=== PATIENT | male | born 1960 | race Caucasian/White ===

== ENCOUNTER 2019-09-13 15:51 | Inpatient (IN) | payer MEDICARE, SELFPAY ==
[2019-09-13 17:26] VITALS: BP 151/75; PULSE 122; RESP 18; TEMP 39.4; O2SAT 95; BMI 24.4
--- NOTE | 2019-09-13 17:31 | XR_ITS ---
WS: [id number] Portable AP upright chest, 09/13/2019 Clinical Data: fever, cough Comparison: None. Findings: No nodules, masses or effusions are seen. The heart is normal. The pulmonary vascularity is not increased. No pneumonia or pneumothorax is seen. XR/XR chest 1V portable [id number] Impression: Negative chest.
[2019-09-13 18:05] LABS: Basophils # 0.1 10^3/uL (0.0-0.1); Basophils % 0.2 %; Eosinophils # 0.1 10^3/uL (0.0-0.8); Eosinophils % 0.5 %; Hematocrit 44.7 % (42.0-52.0); Hemoglobin 14.4 g/dL (11.7-16.6); Lymphocytes # 0.7 10^3/uL (0.8-4.8); Mean Corpuscular HGB Conc 32.2 g/dL (30.0-36.0); Mean Corpuscular Hemoglobin 27.9 pg (28.0-34.0); Mean Corpuscular Volume 86.6 fL (80-94); Mean Platelet Volume 12.1 fL (7.4-10.4); Monocytes # 1.4 10^3/uL (0.2-0.9); Monocytes % 6.2 %; Neutrophils # 20.1 10^3/uL (1.8-7.7); Neutrophils % 89.4 %; Nucleated Red Blood Cells % 0 %; Platelet Count 198 10^3/cmm (130-400); Red Blood Count 5.16 10^6/uL (4.1-5.3); Red Cell Distribution Width 13.4 % (12.1-15.1); White Blood Count 22.5 10^3/uL (4.0-10.0)
[2019-09-13 18:11] LABS: Lactate (Lactic Acid level) 1.7 mmol/L (0.5-2.2)
[2019-09-13 18:12] LABS: Alanine Aminotransferase 12 U/L (0-41); Albumin Level 4.2 g/dL (3.5-5.2); Alkaline Phosphatase 93 IU/L (40-130); Anion Gap 17.5 (5-19); Aspartate Amino Transferase 25 U/L (0-40); Blood Urea Nitrogen 17 mg/dL (6-20); Calcium 9.9 mg/Dl (8.6-10.0); Carbon Dioxide 23 mmol/L (22-29); Chloride 96 mmol/L (98-107); Globulin 3.7 g/dL (1.3-4.6); Glucose 218 mg/dL (74-109); Potassium 3.5 mmol/L (3.5-5.1); Sodium 133 mmol/L (136-145); Total Bilirubin 0.7 mg/dL (0.15-1.2); Total Protein 7.9 g/dL (6.6-8.7)
[2019-09-13 18:37] LABS: Bilirubin Urine 1+ (NEGATIVE); Blood Urine Neg (Negative); Glucose Urine UA Trace (Normal); Ketones Urine Negative (Negative); Nitrate Urine Negative (Negative); Protein Urine 1+ (Negative); Urine Appearance SL Hazy (CLEAR); Urine Color Dark Yellow (Yellow); pH Urine 5 (5-7)
[2019-09-13 18:38] LABS: Add Urine Microscopic? YES; Leukocyte Esterase Urine Negative (Negative); Urobilinogen Urine 4 mg/dL (Negative)
[2019-09-13 18:46] LABS: Bacteria Urine TRACE; Mucus Urine 1+
[2019-09-13 18:51] LABS: Influenza A by IFA Negative (Negative); Influenza B by IFA Negative (Negative)
--- NOTE | 2019-09-13 20:59 | ED_ITS ---
Entered by Lucina Portillo, acting as scribe for Elfego Clark MD Sep 13, 2019 15:51 HPI - Fever General: Chief Complaint: Fever Stated Complaint: lower abd pain, fever Time Seen by Provider: 09/13/19 20:52 Source: patient and family Mode of arrival: ambulatory Limitations: no limitations History of Present Illness: HPI Narrative: 59 y/o male presents to the ED with complaint of fever since last night. Pt reports having lower abd pain for several days. Family is unsure if these are related. MD elicited complaint: fever and other (abd pain) Onset (ago): hour(s) Associated symptoms: Reports abdominal pain and headache(s); Deny chest pain, diarrhea, nausea or vomiting Review of Systems Const: Reports: fever Eyes: Denies: change in vision ENMT: Denies: throat pain or mouth pain Card: Denies: chest pain Resp: Denies: shortness of breath GI: Reports: abdominal pain; Denies: nausea, vomiting or diarrhea Musc: Denies: joint pain Skin/Breast: Denies: rash Neuro: Reports: headache; Denies: behavioral changes Psych: Denies: depression Endo: Denies: excessive urination Dmitry/Lymph: Denies: easy bruising All/Imm: Denies: hives PFSH ED PFSH: Statuses (acute, chronic, etc) shown below reflect problem list status as previously entered and may not be historically accurate Social History Smoking and tobacco status: former smoker Physical Exam Const: COMMON NORMALS: no apparent distress, oriented x3 and healthy appearing HENMT: COMMON NORMALS: normocephalic and external nose normal HEAD & SCALP: normocephalic NOSE: external nose normal Eye: COMMON NORMALS: PERRL PUPIL: Yes PERRL Neck/C-Spine: COMMON NORMALS: full ROM and no lymphadenopathy Chest: COMMONS NORMALS: inspection of chest normal Resp: COMMON NORMALS: normal respiratory effort, no use of accessory muscles and clear to auscultation bilaterally AUSCULTATION: clear to auscultation bilaterally Cardio: COMMON NORMALS: regular rate and regular rhythm RATE: regular rate RHYTHM: regular rhythm GI: COMMON NORMALS: soft to palpation and no masses PALPATION: Yes soft and Yes tender Details: RLQ Back/Pelvis: THORACIC SPINE/UPPER BACK: Yes normal to inspection Extremity: COMMON NORMALS: normal to inspection, full ROM and normal capillary refill Neuro: COMMON NORMALS: oriented x3 Psych: COMMON NORMALS: mental status grossly normal and cooperative Skin: COMMON NORMALS: no rashes or lesions noted GENERAL SKIN EXAM: no rashes or lesions noted Course Vital Signs: Vital signs: Vital Signs Temperature 98.9 F 09/14/19 01:03 Pulse Rate 85 09/14/19 01:03 Respiratory Rate 16 09/14/19 01:03 Blood Pressure 101/73 09/14/19 01:03 Pulse Oximetry 96 09/14/19 01:03 MDM - Fever MDM Narrative: Medical decision making narrative: Patient presents here with fever along with elevated white count was found to have cholecystitis on CT scan. I spoke to Dr. Dudley and will start on antibiotics and admit per his request. I spoke to hospitalist and she will admit at this time. Patient has been stable while in the ER. Lab Data: Labs: Lab Results 09/13/19 09/13/19 09/13/19 Range/Units 17:34 17:43 17:50 WBC 22.5 H (4.0-10.0) 10^3/ uL RBC 5.16 (4.1-5.3) 10^6/u L Hgb 14.4 (11.7-16.6) g/dL Hct 44.7 (42.0-52.0) % MCV 86.6 (80-94) fL MCH 27.9 L (28.0-34.0) pg MCHC 32.2 (30.0-36.0) g/dL RDW 13.4 (12.1-15.1) % Plt Count 198 (130-400) 10^3/c mm MPV 12.1 H (7.4-10.4) fL Neut % (Auto) 89.4 % Lymph % (Auto) 3.0 % [place] % (Auto) 6.2 % Eos % (Auto) 0.5 % Baso % (Auto) 0.2 % Neut # (Auto) 20.1 H (1.8-7.7) 10^3/u L Lymph # (Auto) 0.7 L (0.8-4.8) 10^3/u L [place] # (Auto) 1.4 H (0.2-0.9) 10^3/u L Eos # (Auto) 0.1 (0.0-0.8) 10^3/u L Baso # (Auto) 0.1 (0.0-0.1) 10^3/u L Nucleated RBC % (a uto) 0 % Nucleated RBCs # 0.0 /100WBC PT (10.5-13.3) SECO NDS INR (0.8-1.2) Sodium (136-145) mmol/L Potassium (3.5-5.1) mmol/L Chloride (98-107) mmol/L Carbon Dioxide (22-29) mmol/L Anion Gap (5-19) BUN (6-20) mg/dL Creatinine (0.7-1.2) mg/dL GFR Calculation (90-130) mL/min Glucose (74-109) mg/dL POC Glucose (70-110) mg/dL Lactate (0.5-2.2) mmol/L Calcium (8.6-10.0) mg/Dl Total Bilirubin (0.15-1.2) mg/dL AST (0-40) U/L ALT (0-41) U/L Alkaline Phosphata se (40-130) IU/L Total Protein (6.6-8.7) g/dL Albumin (3.5-5.2) g/dL Globulin (1.3-4.6) g/dL Urine Color Dark yellow (Yellow) Urine Appearance Sl hazy (CLEAR) Urine pH 5 (5-7) Ur Specific Gravit y 1.020 (1.005-1.030) Urine Protein 1+ H (Negative) Urine Glucose (UA) Trace H (Normal) Urine Ketones Negative (Negative) Urine Occult Blood Neg (Negative) Urine Nitrate Negative (Negative) Urine Bilirubin 1+ H (NEGATIVE) Urine Urobilinogen 4 H (Negative) mg/dL Ur Leukocyte Myriam ase Negative (Negative) Urine RBC None (0-2) /hpf Urine WBC None (0-5) /hpf Ur Squamous Epith Cells None (0-5) Urine Bacteria Trace (NONE) Urine Mucus 1+ Influenza Type A A g Negative (Negative) POC Influenza B Ag Negative (Negative) 09/13/19 09/13/19 09/13/19 Range/Units 17:50 17:50 17:50 WBC (4.0-10.0) 10^3/ uL RBC (4.1-5.3) 10^6/u L Hgb (11.7-16.6) g/dL Hct (42.0-52.0) % MCV (80-94) fL MCH (28.0-34.0) pg MCHC (30.0-36.0) g/dL RDW (12.1-15.1) % Plt Count (130-400) 10^3/c mm MPV (7.4-10.4) fL Neut % (Auto) % Lymph % (Auto) % [place] % (Auto) % Eos % (Auto) % Baso % (Auto) % Neut # (Auto) (1.8-7.7) 10^3/u L Lymph # (Auto) (0.8-4.8) 10^3/u L [place] # (Auto) (0.2-0.9) 10^3/u L Eos # (Auto) (0.0-0.8) 10^3/u L Baso # (Auto) (0.0-0.1) 10^3/u L Nucleated RBC % (a uto) % Nucleated RBCs # /100WBC PT 17.80 H (10.5-13.3) SECO NDS INR 1.41 H (0.8-1.2) Sodium 133 L (136-145) mmol/L Potassium 3.5 (3.5-5.1) mmol/L Chloride 96 L (98-107) mmol/L Carbon Dioxide 23 (22-29) mmol/L Anion Gap 17.5 (5-19) BUN 17 (6-20) mg/dL Creatinine 1.0 (0.7-1.2) mg/dL GFR Calculation 77.0 L (90-130) mL/min Glucose 218 H (74-109) mg/dL POC Glucose (70-110) mg/dL Lactate 1.7 (0.5-2.2) mmol/L Calcium 9.9 (8.6-10.0) mg/Dl Total Bilirubin 0.7 (0.15-1.2) mg/dL AST 25 (0-40) U/L ALT 12 (0-41) U/L Alkaline Phosphata se 93 (40-130) IU/L Total Protein 7.9 (6.6-8.7) g/dL Albumin 4.2 (3.5-5.2) g/dL Globulin 3.7 (1.3-4.6) g/dL Urine Color (Yellow) Urine Appearance (CLEAR) Urine pH (5-7) Ur Specific Gravit y (1.005-1.030) Urine Protein (Negative) Urine Glucose (UA) (Normal) Urine Ketones (Negative) Urine Occult Blood (Negative) Urine Nitrate (Negative) Urine Bilirubin (NEGATIVE) Urine Urobilinogen (Negative) mg/dL Ur Leukocyte Myriam ase (Negative) Urine RBC (0-2) /hpf Urine WBC (0-5) /hpf Ur Squamous Epith Cells (0-5) Urine Bacteria (NONE) Urine Mucus Influenza Type A A g (Negative) POC Influenza B Ag (Negative) 09/14/19 Range/Units 00:03 WBC (4.0-10.0) 10^3/ uL RBC (4.1-5.3) 10^6/u L Hgb (11.7-16.6) g/dL Hct (42.0-52.0) % MCV (80-94) fL MCH (28.0-34.0) pg MCHC (30.0-36.0) g/dL RDW (12.1-15.1) % Plt Count (130-400) 10^3/c mm MPV (7.4-10.4) fL Neut % (Auto) % Lymph % (Auto) % [place] % (Auto) % Eos % (Auto) % Baso % (Auto) % Neut # (Auto) (1.8-7.7) 10^3/u L Lymph # (Auto) (0.8-4.8) 10^3/u L [place] # (Auto) (0.2-0.9) 10^3/u L Eos # (Auto) (0.0-0.8) 10^3/u L Baso # (Auto) (0.0-0.1) 10^3/u L Nucleated RBC % (a uto) % Nucleated RBCs # /100WBC PT (10.5-13.3) SECO NDS INR (0.8-1.2) Sodium (136-145) mmol/L Potassium (3.5-5.1) mmol/L Chloride (98-107) mmol/L Carbon Dioxide (22-29) mmol/L Anion Gap (5-19) BUN (6-20) mg/dL Creatinine (0.7-1.2) mg/dL GFR Calculation (90-130) mL/min Glucose (74-109) mg/dL POC Glucose 160 (70-110) mg/dL Lactate (0.5-2.2) mmol/L Calcium (8.6-10.0) mg/Dl Total Bilirubin (0.15-1.2) mg/dL AST (0-40) U/L ALT (0-41) U/L Alkaline Phosphata se (40-130) IU/L Total Protein (6.6-8.7) g/dL Albumin (3.5-5.2) g/dL Globulin (1.3-4.6) g/dL Urine Color (Yellow) Urine Appearance (CLEAR) Urine pH (5-7) Ur Specific Gravit y (1.005-1.030) Urine Protein (Negative) Urine Glucose (UA) (Normal) Urine Ketones (Negative) Urine Occult Blood (Negative) Urine Nitrate (Negative) Urine Bilirubin (NEGATIVE) Urine Urobilinogen (Negative) mg/dL Ur Leukocyte Myriam ase (Negative) Urine RBC (0-2) /hpf Urine WBC (0-5) /hpf Ur Squamous Epith Cells (0-5) Urine Bacteria (NONE) Urine Mucus Influenza Type A A g (Negative) POC Influenza B Ag (Negative) Imaging Data^: CT Abd/Pel: Attestation: I personally reviewed and interpreted this imaging study as follows: Radiologist's impression: Patient: Remy Marley Unit #: [id number] : 1960 Age/Sex: 59 / M ADM Date: 09/13/19 Loc: ER Room/Bed: Attending Dr: Ordering Provider/Ordering MD: Elfego Clark MD Date of Service: 09/13/19 Procedure(s): CT abdomen pelvis w con* [id number] Accession Number(s): [id number] Report Number: [id number]/CT abdomen pelvis w con* [id number] THIS REPORT CONTAINS FINDINGS THAT MAY BE CRITICAL TO PATIENT CARE. The findings were verbally communicated via telephone conference with elfego Clark at 11:00 PM FINANCIAL MANAGEMENT CONSULTANT on 09/13/2019. The findings were acknowledged and understood. Radiation Dose CTDIVOL = (mGy): DLP = 1823.73 (mGy-cm) Addendum Dictated By: Tanja Wiggins Addendum Signed By: Tanja Wiggins Signed Date/Time: 09/13/19 230 Addendum Cosigned By: PROCEDURE INFORMATION: Exam: CT Abdomen And Pelvis With Contrast Exam date and time: 09/13/2019 9:19 PM Age: 59 years old Clinical indication: Abdominal tenderness and constipation; Prior surgery; Surgery type: Gastric bypass, hernia; Additional info: Abd pain TECHNIQUE: Imaging protocol: Computed tomography of the abdomen and pelvis with intravenous contrast. Total DLP: 1823.73 mGy-cm Radiation optimization: All CT scans at this facility use at least one of these dose optimization techniques: automated exposure control; mA and/or kV adjustment per patient size (includes targeted exams where dose is matched to clinical indication); or iterative reconstruction. Contrast material: OMNI 300; Contrast volume: 95 ml; Contrast route: IV; COMPARISON: No relevant prior studies available. FINDINGS: Mediastinum: A small hiatal hernia is present. Liver: Unremarkable.No mass. Gallbladder and bile ducts: There is diffuse gallbladder wall thickening and edema, consistent with acute cholecystitis. No gallstones are identified. There is no common bile duct dilation. Pancreas: Normal. No ductal dilation. Spleen: Normal. No splenomegaly. Adrenals: Normal. No mass. Kidneys and ureters: Normal. No hydronephrosis. Stomach and bowel: There has been a gastric stapling and bypass. There is mild small bowel wall thickening, consistent with mild enteritis. Appendix: No evidence of appendicitis. Intraperitoneal space: Unremarkable. No free air. No significant fluid collection. Vasculature: Unremarkable.No abdominal aortic aneurysm. Lymph nodes: Unremarkable.No enlarged lymph nodes. Bladder: Unremarkable as visualized. Reproductive: Unremarkable as visualized. Bones/joints: Unremarkable. No acute fracture. Soft tissues: There is a nonobstructing left inguinal hernia. CT/CT abdomen pelvis w con* [id number] IMPRESSION: 1. Acute cholecystitis. 2. There is mild small bowel wall thickening, consistent with mild enteritis. Discharge Plan Discharge Patient Disposition: Admitted As Inpatient Admit Provider: Areli Mahoney Clinical Impression: Cholecystitis Condition: Stable Interventions: ED Discharge Assessment Last Done: 09/14/19 01:03 Discharge Date/Time: 09/14/19 01:04 Coding Level of Care Code ED Tool Maker Bench for Chg Fwd Exam Problem Focused The documentation recorded by the Bandar pritchett Ashley, accurately reflects the service I personally performed and the decisions made by me, Elfego Clark MD Sep 13, 2019 15:51
--- NOTE | 2019-09-13 21:02 | CTR_ITS ---
PROCEDURE INFORMATION: Exam: CT Abdomen And Pelvis With Contrast Exam date and time: 09/13/2019 9:19 PM Age: 59 years old Clinical indication: Abdominal tenderness and constipation; Prior surgery; Surgery type: Gastric bypass, hernia; Additional info: Abd pain TECHNIQUE: Imaging protocol: Computed tomography of the abdomen and pelvis with intravenous contrast. Total DLP: 1823.73 mGy-cm Radiation optimization: All CT scans at this facility use at least one of these dose optimization techniques: automated exposure control; mA and/or kV adjustment per patient size (includes targeted exams where dose is matched to clinical indication); or iterative reconstruction. Contrast material: OMNI 300; Contrast volume: 95 ml; Contrast route: IV; COMPARISON: No relevant prior studies available. FINDINGS: Mediastinum: A small hiatal hernia is present. Liver: Unremarkable.No mass. Gallbladder and bile ducts: There is diffuse gallbladder wall thickening and edema, consistent with acute cholecystitis. No gallstones are identified. There is no common bile duct dilation. Pancreas: Normal. No ductal dilation. Spleen: Normal. No splenomegaly. Adrenals: Normal. No mass. Kidneys and ureters: Normal. No hydronephrosis. Stomach and bowel: There has been a gastric stapling and bypass. There is mild small bowel wall thickening, consistent with mild enteritis. Appendix: No evidence of appendicitis. Intraperitoneal space: Unremarkable. No free air. No significant fluid collection. Vasculature: Unremarkable.No abdominal aortic aneurysm. Lymph nodes: Unremarkable.No enlarged lymph nodes. Bladder: Unremarkable as visualized. Reproductive: Unremarkable as visualized. Bones/joints: Unremarkable. No acute fracture. Soft tissues: There is a nonobstructing left inguinal hernia. CT/CT abdomen pelvis w con* [id number] IMPRESSION: 1. Acute cholecystitis. 2. There is mild small bowel wall thickening, consistent with mild enteritis. Radiation Dose CTDIVOL = (mGy): DLP = 1823.73 (mGy-cm)
[2019-09-13] MEDS: acetaminophen 500 mg Tablet 1000 MG PO (22:22)
[2019-09-13] MEDS: sodium chloride 0.9% 1,000 ML 999 ML IV (22:22)
[2019-09-13] MEDS: iohexol 300 mg/mL 100 mL Btl 95 ML IV (22:34)
[2019-09-13] MEDS: sodium chloride 0.9% 1,000 ML 100 ML IV (23:28)
[2019-09-13] MEDS: piperacillin-tazobactam 4.5 GM in sodium chloride 0.9% (plus) 50 ML IV (23:32)
[2019-09-13 23:57] LABS: INR 1.41 (0.8-1.2)
[2019-09-14] VITALS (28 sets, daily range): BP systolic 101–150; BP diastolic 69–97; PULSE 60–139; RESP 14–23; TEMP 36.3–38.8; O2SAT 93–100
[2019-09-14 00:07] LABS: Glucose Point of Care 160 mg/dL (70-110)
--- NOTE | 2019-09-14 00:39 | P.HP_ITS ---
Providers/Chief Complaint Admitting Physician: Areli Mahoney MD Chief Complaint: lower abd pain, fever History of Present Illness Remy Marley is a 59 year old male with PMHx of NIDDM type II, presents from home accompanied by his for evaluation of lower abdominal pain, fever, decreased oral intake and nausea. Lower abdominal pain started on Wednesday and he initially thought that he had pulled a muscle as earlier in the day he had been pushing and pulling on propane tanks. Pain gradually increased in intensity and as of yesterday he started to spike fever mom have episodes of nausea, was diaphoretic throughout the night, and has had significantly diminished appetite which is unusual for him so encouraged him to seek further evaluation in the ER today. He is a diabetic and takes metformin. States that he was previo usly hypertensive and had high cholesterol both of which are controlled and he is no longer taking any medications for these. On evaluation in the ER he was noted to have significant leukocytosis with a white count over 20, normal hemoglobin, blood sugar of 218, sodium of 133, normal renal function, INR of 1.41, normal LFTs, lactic acid of 1.7. He had a CT of the abdomen and pelvis done showing acute cholecystitis and mild enteritis. He has received IV fluid hydration and a dose of Zosyn. Consult has been placed for Dr. Dudley and patient is n.p.o. anticipating surgery. Vital signs are stable. He is still in some pain, rates it as 8 out of 10. He has received morphine for pain control which will be continued. Patient and updated accordingly in the ER. Review of Systems Const: Reports: fever, chills, change in appetite (decreased appetite), malaise and night sweats; Denies: fatigue Eyes: Denies: change in vision ENMT: Reports: dry mouth Card: Denies: chest pain, swelling of feet/ankles or lightheadedness Resp: Denies: shortness of breath GI: Reports: abdominal pain (Lower abdominal), nausea and diarrhea (Has had multiple loose and watery bowel movements); Denies: vomiting, vomiting blood or blood in stool : Reports: decreased urine ouput; Denies: difficulty urinating or painful urination Musc: Denies: back pain Skin/Breast: Denies: rash Neuro: Denies: numbness in extremities or weakness in extremities Psych: Denies: anxiety Medications/Allergies Allergies Allergy/AdvReac Type Severity Reaction Status Date / Time No Known Allergies Allergy Verified 09/13/19 17:30 Additional Medication Information Additional Medication Information: -pending med rec PFSH Acute PFSH: Statuses (acute, chronic, etc) shown below reflect problem list status as previously entered and may not be historically accurate Medical History (Updated 09/14/19 @ 01:37 by rAeli Mahoney MD) DM type 2 (diabetes mellitus, type 2) (Acute) On metformin Surgical History (Updated 09/14/19 @ 01:32 by Areli Mahoney MD) H/O hernia repair (Acute) History of bariatric surgery (Acute) Approximately 4 years ago History of nasal surgery (Acute) Family History (Updated 09/14/19 @ 01:32 by Areli Mahoney MD) Father CAD (coronary artery disease) Brother Diabetes Social History (Updated 09/14/19 @ 01:33 by Areli Mahoney MD) Smoking and tobacco status: former smoker Quit status (tobacco): has quit using tobacco Year quit tobacco: 20 years ago Alcohol intake: former Year of sobriety/quit date alcohol: 20 years ago Substance/Drug Use: former Date of last use: 20 years ago Lives independently: Yes Household members: spouse Housing: House Vitals/I&O/Wt Last Vital Signs Temp 98.9 F 09/14/19 00:07 Pulse 122 H 09/13/19 17:26 Resp 18 09/13/19 17:26 BP 151/75 09/13/19 17:26 Pulse Ox 95 09/13/19 17:26 Weight last 48 hrs Weight 81.647 kg Physical Exam Const: COMMON NORMALS: no apparent distress and oriented x3 GENERAL APPEARANCE: cooperative and comfortable; not ill appearing ORIENTATION/CONSCIOUSNESS: Yes awake HENMT: COMMON NORMALS: normocephalic, head/scalp atraumatic, hearing grossly normal bilaterally and moist oral mucous membranes HEAD & SCALP: normocephalic and atraumatic Eye: COMMON NORMALS: PERRL, EOMs intact bilaterally and conjunctivae normal CONJUNCTIVA: Yes conjunctivae normal PUPIL: Yes PERRL Neck/C-Spine: COMMON NORMALS: full ROM GENERAL: Yes normal visual inspection and Yes trachea midline Resp: COMMON NORMALS: normal respiratory effort, no retractions, no use of accessory muscles and clear to auscultation bilaterally EFFORT & INSPECTION: Yes able to speak in complete sentences, Yes symmetric chest movement and No ta chypneic AUSCULTATION: clear to auscultation bilaterally Cardio: COMMON NORMALS: regular rate, regular rhythm, S1 normal heart sound, S2 normal heart sound and no murmurs RATE: regular rate RHYTHM: regular rhythm HEART SOUNDS: S1 normal and S2 normal GI: COMMON NORMALS: normal to inspection, nondistended, normoactive bowel sounds and soft to palpation INSPECTION: Yes central obesity PALPATION: Yes soft, Yes tender Details: LLQ and RLQ, No ascites present and No rebound tenderness present Extremity: COMMON NORMALS: normal to inspection, full ROM and no clubbing, cyanosis or edema; negative for no pedal edema Neuro: COMMON NORMALS: oriented x3, moves all extremities, no focal motor deficits and no sensory deficits noted Psych: COMMON NORMALS: mental status grossly normal, thought process normal, cooperative, affect normal and speech normal SPEECH: Yes normal speech THOUGHT PROCESS: normal thought process Skin: COMMON NORMALS: no rashes or lesions noted, no jaundice, no petechiae and no mottling GENERAL SKIN EXAM: no rashes or lesions noted Data : 09/13/19 17:50 09/13/19 17:50 Micro: Microbiology 09/13/19 17:51 Blood Culture - Preliminary Blood SPECIMEN COLLECTED 09/13/19 17:50 Blood Culture - Preliminary Blood SPECIMEN COLLECTED A&P Assessment and plan (1) Cholecystitis: -Acute cholecystitis prior CT of the abdomen and pelvis -Noted significant leukocytosis, had high-grade temp of 102.9F -Keep n.p.o. after midnight -Surgical consult by Dr. Dudley in a.m. -Has received dose of Zosyn, IV fluid hydration. Continue IVF -Pain control, antiemetics as needed -monitor vital signs Status: Acute Code(s): K81.9 - Cholecystitis, unspecified (2) DM type 2 (diabetes mellitus, type 2): -Has history of NIDDM type II -A1c in AM -Accuchecks, ISS -hypoglycemia precautions Status: Acute Qualifiers: Diabetes mellitus penitentiary insulin use: without magnetometer operator use Diabetes mellitus complication status: without complication Qualified Code(s): E11.9 - Type 2 diabetes mellitus without complications Code(s): E11.9 - Type 2 diabetes mellitus without complications Additional A&P Information -DVT ppx with SCDs, no AC due to surgery -bed rest for now -Dispo: home -Code status: FULL code Attestations Medical Necessity Statement*: Remy Marley's hospital stay will be less than 2 midnights for management of acute cholecystitis, pending surgery in a.m. Time Spent in Patient Care: Greater than 35 minutes (>than 50% of time s pent in counselling and/or direct pt care on unit) . Coding Level of Care Code Acute Magnetometer Operator for Chg Fwd Diagnoses Cholecystitis K81.9 DM type 2 (diabetes mellitus, type 2) E11.9 Diabetes mellitus magnetometer operator insulin use: without magnetometer operator use Diabetes mellitus complication status: without complication
[2019-09-14] MEDS: D5-NS 0.45% + KCL 20 mEq 20 MEQ/1,000 ML BAG 100 MEQ IV (03:09)
[2019-09-14] MEDS: morphine 4 mg/mL SDV 1 mL 2 MG IVP ×5 (03:10→14:31)
[2019-09-14 04:27] LABS: Anion Gap 14.5 (5-19); Blood Urea Nitrogen 18 mg/dL (6-20); Calcium 9.1 mg/Dl (8.6-10.0); Carbon Dioxide 25 mmol/L (22-29); Chloride 99 mmol/L (98-107); Glucose 165 mg/dL (74-109); Potassium 3.5 mmol/L (3.5-5.1); Sodium 135 mmol/L (136-145)
[2019-09-14 05:25] LABS: Estmated Average Glucose 134; Hemoglobin A1C 6.3 % (4.0-6.0)
--- NOTE | 2019-09-14 05:49 | PM.CONSULT ---
Providers/Reason For Consult Consulting Physican/Specialty*: Antonio Dudley MD Reason for Consult*: Acute cholecystitis Attending Physician: Areli Mahoney MD History of Present Illness History of Present Illness Chief complaint ; Abdominal pain HPI ; Remy Marley is a 59 year old male gives a history of lifting propane tank last Wednesday and started to have lower abdominal pain thereafter, as he started to develop fever his encouraged him to come to the ER for further evaluation, patient gives history of diabetes mellitus type 2heis a status post laparoscopic Demetrio-en-Y gastric bypass 4 years ago at , he was admitted on the hospitalist service, CT scan was done in the emergency department and showed acute cholecystitis General surgery was consulted for further evaluation and potential intervention Review of Systems Const: Reports: fever, chills, change in appetite, fatigue and night sweats; Denies: body aches or malaise Card: Denies: chest pain Resp: Denies: shortness of breath GI: Reports: abdominal pain and diarrhea; Denies: nausea, vomiting, difficulty swallowing, constipation or blood in stool Neuro: Denies: headache Psych: Denies: anxiety or depression Meds/Allergies Home Medications and Allergies Allergies Allergy/AdvReac Type Severity Reaction Status Date / Time No Known Allergies Allergy Verified 09/13/19 17:30 Current Medications Current Medications Generic Name Dose Route Start Last Admin Trade Name Freq PRN Reason Stop Dose Admin Potassium Chloride/Dextrose/Sod Cl 20 meq in 1,000 mls @ 100 mls/hr 09/14/19 01:20 09/14/19 03:09 D5-Ns 0.45% + Kcl 20 Meq IV 100 mls/hr .Q10H PALOMA Administration Morphine Sulfate 2 mg 09/14/19 00:38 09/14/19 03:10 Morphine IVP 2 mg Q4H PRN Administration SEVERE PAIN PFSH Acute PFSH: Statuses (acute, chronic, etc) shown below reflect problem list status as previously entered and may not be historically accurate Medical History DM type 2 (diabetes mellitus, type 2) (Acute) On metformin Surgical History H/O hernia repair (Acute) History of bariatric surgery (Acute) Approximately 4 years ago History of nasal surgery (Acute) Family History Father CAD (coronary artery disease) Brother Diabetes Social History Smoking and tobacco status: former smoker Quit status (tobacco): has quit using tobacco Year quit tobacco: 20 years ago Alcohol intake: former Year of sobriety/quit date alcohol: 20 years ago Substance/Drug Use: former Date of last use: 20 years ago Lives independently: Yes Household members: spouse Housing: House Vitals/I&O/Wt Last Vital Signs Temp 99.6 F 09/14/19 02:42 Pulse 78 09/14/19 02:42 Resp 16 09/14/19 03:10 BP 133/79 09/14/19 02:42 Pulse Ox 100 09/14/19 02:42 09/13/19 09/13/19 09/14/19 14:59 22:59 06:59 Intake Total 361.667 / 361.667 Balance 361.667 / 361.667 Weight last 48 hrs Weight 180 lb Physical Exam Const: COMMON NORMALS: no apparent distress and oriented x3 GENERAL APPEARANCE: cooperative ORIENTATION/CONSCIOUSNESS: Yes awake, Yes oriented to person, Yes oriented to place and Yes oriented to time HENMT: COMMON NORMALS: normocephalic HEAD & SCALP: normocephalic Eye: COMMON NORMALS: PERRL and no scleral icterus PUPIL: Yes PERRL Lymph: LYMPHATIC: no lymphadenopathy noted Chest: COMMONS NORMALS: inspection of chest normal Resp: COMMON NORMALS: normal respiratory effort and clear to auscultation bilaterally AUSCULTATION: clear to auscultation bilaterally Cardio: COMMON NORMALS: S1 normal heart sound and S2 normal heart sound; negative for no murmurs HEART SOUNDS: S1 normal and S2 normal GI: COMMON NORMALS: soft to palpation; negative for no hepatosplenomegaly INSPECTION: Yes normal to inspection PALPATION: Yes soft, No firm, Yes tender (Positive Jefferson's sign) Details: LLQ and RUQ, No guarding, No rigid and No no hepatosplenomegaly Neuro: COMMON NORMALS: oriented x3 SENSORIUM/ORIENTATION: Yes oriented to person, Yes oriented to place and Yes oriented to time Psych: COMMON NORMALS: mental status grossly normal Skin: COMMON NORMALS: no rashes or lesions noted GENERAL SKIN EXAM: no rashes or lesions noted and other (Warm to touch) Data Micro: Micro: Microbiology 09/13/19 17:51 Blood Culture - Pr eliminary Blood SPECIMEN [facility] JO[facility] 09/13/19 17:50 Blood Culture - Pr eliminary Blood SPECIMEN [facility] A&P Assessment and plan (1) Cholecystitis: Plan of care; After thorough history physical examination and reviewing the chart and images with my personal interpretation,I counseled the patient for laparoscopic cholecystectomy possible open, indications risks including but not limited injury to the common bile duct and other viscera.benefits and alternatives all discussed with the patient, and she did agree to proceed. All questions have been answered and all concerns have been addressed to patient's satisfaction. 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
[2019-09-14] MEDS: piperacillin-tazobactam 3.375 GM in sodium chloride 0.9% (plus) 50 ML IV ×3 (06:56→23:36)
--- NOTE | 2019-09-14 11:31 | P.ANES_ITS ---
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) Was Beta Annelise taken within 24 hours: N/A Last intake: Intake Nothing for >48 hrs, sprite yesterday in ER Last Liquid Date 09/14/19 Last Liquid Time 00:00 Last Solid Date 09/12/19 Last Solid Time 12:00 Social: Social History: No alcohol and No tobacco Exam: Pre-Anes Outpt Exam: alert, oriented x 3, clear to auscultation bilaterally and regular rate & rhythm Airway: Cervical ROM: WNL MP: 3 Dentition: False Pulmonary: Pulmonary: None reported CV/HEM: CV/HEM: HTN : : None reported Hepatic: Hepatic: None reported GI: Comments: cholecystitis Metabolic: Metabolic: DM, Hyperlipidemia and Morbid obesity Musc/skel: Musc/skel: Lower Back Pain Neuropsych: Neuropsych: None reported Anesthetic Plan: ASA status: III Anesthesia: General Meds/Allergies Current Medications: Current Medications Generic Name Dose Route Start Last Admin Trade Name Freq PRN Reason Stop Dose Admin Potassium Chloride /Dextrose/Sod Cl 20 meq in 1,000 m ls @ 100 mls/hr 09/14/19 01:20 09/14/19 07:07 D5-Ns 0.45% + Bam l 20 Meq IV 100 mls/hr .Q10H PALOMA Infusion Piperacillin Sod/T azobactam 50 mls @ 12.5 mls /hr 09/14/19 06:15 09/14/19 06:56 Sod 3.375 gm/ So dium Chloride IV 12.5 mls/hr Q8H PALOMA Administration Protocol Insulin Aspart 0 unit 09/14/19 08:00 09/14/19 09:40 Novolog SUBCUT Not Given WM&BEDTIME PALOMA Protocol Morphine Sulfate 2 mg 09/14/19 06:12 09/14/19 06:55 Morphine IVP 2 mg Q2H PRN Administration SEVERE PAIN Additional Medication Information: -pending med rec PFSH Anesthesia PFSH: Medical History DM type 2 (diabetes mellitus, type 2) (Acute) On metformin Surgical History H/O hernia repair (Acute) History of bariatric surgery (Acute) Approximately 4 years ago History of nasal surgery (Acute) Family History Father CAD (coronary artery disease) Brother Diabetes Social History Smoking and tobacco status: former smoker Quit status (tobacco): has quit using tobacco Year quit tobacco: 20 years ago Alcohol intake: former Year of sobriety/quit date alcohol: 20 years ago Substance/Drug Use: former Date of last use: 20 years ago Lives independently: Yes Household members: spouse Housing: House Data Anesthesia CBC & Chem 7: 09/13/19 17:50 09/14/19 03:30 Other Labs: Laboratory Results - last 48 hr 09/13/19 09/13/19 09/13/19 17:34 17:43 17:50 WBC 22.5 H RBC 5.16 Hgb 14.4 Hct 44.7 MCV 86.6 MCH 27.9 L MCHC 32.2 RDW 13.4 Plt Count 198 MPV 12.1 H Neut % (Auto) 89.4 Lymph % (Auto) 3.0 [place] % (Auto) 6.2 Eos % (Auto) 0.5 Baso % (Auto) 0.2 Neut # (Auto) 20.1 H Lymph # (Auto) 0.[address] [place] # (Auto) 1.4 H Eos # (Auto) 0.1 Baso # (Auto) 0.1 Nucleated RBC % (auto) 0 Nucleated RBCs # 0.0 PT INR Sodium Potassium Chloride Carbon Dioxide Anion Gap BUN Creatinine GFR Calculation Glucose POC Glucose Estimat Average Glucose Hemoglobin A1c Lactate Calcium Total Bilirubin AST ALT Alkaline Phosphatase Total Protein Albumin Globulin Urine Color Dark yellow Urine Appearance Sl hazy Urine pH 5 Ur Specific [place] 1.020 Urine Protein 1+ H Urine Glucose (UA) Trace H Urine Ketones Negative Urine Occult Blood Neg Urine Nitrate Negative Urine Bilirubin 1+ H Urine Urobilinogen 4 H Ur Leukocyte Esterase Negative Urine RBC None Urine WBC None Ur Squamous Epith Cells None Urine Bacteria Trace Urine Mucus 1+ Influenza Type A Ag Negative POC Influenza B Ag Negative 09/13/19 09/13/19 09/13/19 17:50 17:50 17:50 WBC RBC Hgb Hct MCV MCH MCHC RDW Plt Count MPV Neut % (Auto) Lymph % (Auto) [place] % (Auto) Eos % (Auto) Baso % (Auto) Neut # (Auto) Lymph # (Auto) [place] # (Auto) Eos # (Auto) Baso # (Auto) Nucleated RBC % (auto) Nucleated RBCs # PT 17.80 H INR 1.41 H Sodium 133 L Potassium 3.5 Chloride 96 L Carbon Dioxide 23 Anion Gap 17.5 BUN 17 Creatinine 1.0 GFR Calculation 77.0 L Glucose 218 H POC Glucose Estimat Average Glucose Hemoglobin A1c Lactate 1.7 Calcium 9.9 Total Bilirubin 0.7 AST 25 ALT 12 Alkaline Phosphatase 93 Total Protein 7.9 Albumin 4.2 Globulin 3.7 Urine Color Urine Appearance Urine pH Ur Specific [place] Urine Protein Urine Glucose (UA) Urine Ketones Urine Occult Blood Urine Nitrate Urine Bilirubin Urine Urobilinogen Ur Leukocyte Esterase Urine RBC Urine WBC Ur Squamous Epith Cells Urine Bacteria Urine Mucus Influenza Type A Ag POC Influenza B Ag 09/14/19 09/14/19 09/14/19 00:03 03:30 03:30 WBC RBC Hgb Hct MCV MCH MCHC RDW Plt Count MPV Neut % (Auto) Lymph % (Auto) [place] % (Auto) Eos % (Auto) Baso % (Auto) Neut # (Auto) Lymph # (Auto) [place] # (Auto) Eos # (Auto) Baso # (Auto) Nucleated RBC % (auto) Nucleated RBCs # PT INR Sodium 135 L Potassium 3.5 Chloride 99 Carbon Dioxide 25 Anion Gap 14.5 BUN 18 Creatinine 0.9 GFR Calculation 87.0 L Glucose 165 H POC Glucose 160 Estimat Average Glucose 134 Hemoglobin A1c 6.3 H Lactate Calcium 9.1 Total Bilirubin AST ALT Alkaline Phosphatase Total Protein Albumin Globulin Urine Color Urine Appearance Urine pH Ur Specific [place] Urine Protein Urine Glucose (UA) Urine Ketones Urine Occult Blood Urine Nitrate Urine Bilirubin Urine Urobilinogen Ur Leukocyte Esterase Urine RBC Urine WBC Ur Squamous Epith Cells Urine Bacteria Urine Mucus Influenza Type A Ag POC Influenza B Ag Micro: Microbiology 09/13/19 17:51 Blood Culture - Preliminary Blood SPECIMEN COLLECTED 09/13/19 17:50 Blood Culture - Preliminary Blood SPECIMEN COLLECTED Cardiac Studies: No Data to Display
--- NOTE | 2019-09-14 11:33 | PC.NURSE ---
surgery pt went to surgery around 1100
[2019-09-14] MEDS: heparin 5,000 unit/mL INJ 1 mL 3000 UNIT SUBCUT (11:51)
[2019-09-14] MEDS: sodium chloride 0.9% 1,000 ML 30 ML IV (12:11)
--- NOTE | 2019-09-14 12:19 | PC.CHAP ---
Pastoral Care Encounter/Spiritual Assessment Type of Contact [] Declined completions engineer visit [] Patient/Family/Request visit [] Outpatient visit [] Follow-up visit [] Physician referral [] Code/Alert [] Routine visit [] Staff referral [] Actively dying [x] Patient sleeping [] Family support [] [] Out of room [] Palliative care [] [] Receiving care in room [] Pre-surgical visit [] Trauma [] Long length of stay [] ICU visit [] Other: Relational/Emotional Strength [] Patient feels connected with others/family/visitors/staff [] Distress [] Loneliness/isolation [] Abandonment Spirituality of Patient [] Person of Anamika [] Attends Episcopal of their Anamika [] Believes in Prayer [] Reads Bible or Church materials [] There are Spiritual issues to be addressed Trust Administrator Interventions [] Prayer [] Active listening [] Non-anxious presence [] Spiritual/emotional support [] Crisis/trauma care [] Spiritual counseling [] Bereavement support [] Provided bereavement packet [] Provided Bible/devotional materials [] Provided toy/stuffed animal, coloring book to patient or family member [] Completed spiritual assessment [] Provided Communion [] Anointing/[place] [] Salvation [] Other: Impact on Illness or Injury [] Angry [] Fearful [] Anxious [] Often cries [] Exhaustion [] Unable to work [] Unable to attend restorationist [] Unable to walk/stand [] Unable to read [] Unable to drive [] Unable to eat/drink [] Unable to sleep [] Unable to be with family [] Other: Summary Time spent with patient
[2019-09-14] MEDS: lidocaine 2% INJ 20 mL INJECTION (13:38)
--- NOTE | 2019-09-14 13:48 | P.OP_ITS ---
Operative Report Date of procedure: 09/15/19 Preop Diagnosis: cholecystitis Post-op Findings: Acute calculus necrotic cholecystitis with extensive edema and inflammation w surrounding adhesions Procedure Done: Laparoscopic cholecystectomy and placement of intra-abdominal drain Implants: Surgicel and FloSeal-like material Specimens removed/disposition: Gallbladder and contents Surgeon: Antonio Dudley Lay Out Inspector: Darren Ybarra Anesthesia: general (MOTEL OPERATOR Caesar and Johana) Estimated blood loss (mL): 100 IV fluids (mL): 600 Complications: No immediate complications Brief History: This is a pleasant 59 years old gentleman presenting with worsening abdominal to the ER where a CT scan was obtained and showed acute cholecystitis, patient gives history of lifting a heavy object last Wednesday and as the pain got worse he came to the ER, fevers and leukocytosis, patient is diabetic was admitted on the hospitalist service and surgery was consulted for potential evaluation and intervention. Plan of care; After thorough history physical examination and reviewing the chart ,I counseled the patient for laparoscopic cholecystectomy possible open, indications risks including but not limited injury to the common bile duct and other viscera.benefits and alternatives all discussed with the patient, and she did agree to proceed. All questions have been answered and all concerns have been addressed to patient's satisfaction. Informed consent per chart Procedure: Patient was identified in the holding area and taken back to the operative suite, placed in supine position intubated by anesthesia . Time-out was done verifying the patient's name/date of /planned procedure and destination after the procedure, all were in agreement. SCDs confirmed to be functioning, preoperative antibiotics administered per protocol, and beta abhi protocol was confirmed. Patient was appropriately secured to the table, footboard was applied to the OR table, before prep and drape anesthesia was asked to tilt the table back and forth to make sure that the patient is appropriately secured and she was. Prep and drape of the abdomen was done under the usual sterile technique, followed by that supraumbilical skin incision,skin incision was done by a 15 blade knife, and stay sutures were applied to the fascia and Sequeira trocar technique was used to enter the abdominal without injuring any abdominal viscera, started by low flow gas insufflation followed by a high flow, started with a 10 mm laparoscope and under direct vision there was no evidence of any injuries, the scope then switched to a 30? ,10 millimeter scope and under direct visualization 5 millimeter trocar was inserted in the epigastric region followed by two 5 mm trocars were inserted in the right upper quadrant that was done after injection of local lidocaine 2% at all incision sites. Gallbladder showed acute calculus cholecystitis with extensive edema &with adhesions Omentum encasing the inflamed gallbladder Patient was then positioned in the head up and tilted to the left, I started by aspirating gallbladder contents about 50 to 60 mL of dark green bile and that was sent for cultures and sensitivity, dissection started by taking adhesions down using [place] forceps with heat, continued dissection until I identified the critical view of the cystic duct and cystic artery where seen connected to the gallbladder.3 Clips were applied on the cystic duct towards the common bile duct 1 towards the gallbladder then divided is in sharp scissors, 2 clips were then applied onto the cystic artery and 1 towards the gallbladder and divided by sharp scissors. Dissection was then carried along of the gallbladder from the gallbladder fossa using cautery as well as sharp dissection with heat energy. The gallbladder then was dissected out from the gallbladder fossa totally, noticed to have the gallbladder embedded in the liver parenchyma and there was some bleeding that I was able to controlled by using multiple clips and cauterization also there was some element of necrotic tissues at the bed of the gallbladder that was debrided and purulent discharge suggestive of necrotic nature of the infected and inflammatory process, cholecystectomy was then achieved and was placed in an Endo Catch bag and then retrieved from the Sequeira trocar site under direct visualization using a 5 mm 30? scope through the epigastric trocar, specimen was then passed to the circulating nurse to go for permanent patho logy,irrigation and hemostasis was done to the gallbladder fossa after hemostasis was secured, final survey laparoscopy was done that showed no injuries. Suction irrigation was obtained. Hemostasis was achieved using Bovie cauterization as well as large piece of Surgicel and FloSeal I elected to place a 15 [place] round Leif drain was placed under direct visualization at the gallbladder bed, and secured to the skin by 2-0 silk times The supraumbilical fascial defect was then closed using interrupted Vicryl sutures using a fascial closure device ;Billy Castillo under direct visualization Gas was allowed to deflate,Trocars were then taken out under direct vision there was no evidence of bleeding Specimen was passed to the circulating nurse for permanent pathology. The supraumbilical incision as well as all trocar sites were closed by skin zenobia to approximate the skin edges of the supraumbilical incision as well as the other stab incision, Band-Aids dressing were applied and the patient patient got extubated and was taken to recovery area in a stable condition. Count of sponges, needles and instruments were completed at the end of the procedure I was present for the whole entire procedure.
--- NOTE | 2019-09-14 14:03 | SUR.PHASEI ---
[id number] PATIENT TO PACU AT THIS TIME VIA GURNEY. RR EVEN AND UNLABORED. RESPONDS TO VERBAL STIMULI. PLACED ON SIMPLE MASK AT 8L. 4 STABS NOTED TO ABDOMEN, WITH ANGELA DRAIN TO RIGHT ABDOMEN.
[2019-09-14] MEDS: fentaNYL 50 mcg/mL INJ 2mL IVP ×2 (14:05→14:14)
--- NOTE | 2019-09-14 14:11 | PM.PN ---
Subjective Subjective: Interval history: Remy reports he is ready for surgery when I saw him this morning. Reported right upper quadrant pain. Medications: Reviewed: Yes Vitals/I&O/Wt Last Vital Signs Temp 97.3 F L 09/14/19 13:54 Pulse 127 H 09/14/19 14:05 Resp 15 09/14/19 14:05 BP 143/97 09/14/19 14:05 Pulse Ox 100 09/14/19 14:05 09/13/19 09/14/19 09/14/19 22:59 06:59 14:59 Intake Total 361.667 / 361.667 496.667 / 496.667 Output Total 100 / 100 Balance 361.667 / 361.667 396.667 / 396.667 Weight last 48 hrs Weight 81.647 kg Physical Exam Narrative: EXAM NARRATIVE: General exam is no apparent distress Cardiovascular regular rate and rhythm without murmur Lungs clear Abdomen soft obese, right upper quadrant tenderness palpation Extremities no cyanosis clubbing or edema Data Micro: Micro: Microbiology 09/13/19 17:51 Blood Culture - Pr eliminary Blood SPECIMEN [facility] 09/13/19 17:50 Blood Culture - Pr eliminary Blood SPECIMEN [facility] A&P Assessment and plan (1) Cholecystitis: Surgery today. Continue Zosyn. Continue support with IV fluids. 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 insulin use: without truck terminal manager use Diabetes mellitus complication status: without complication Qualified Code(s): E11.9 - Type 2 diabetes mellitus without complications Code(s): E11.9 - Type 2 diabetes mellitus without complications Additional A&P Information SCDs for DVT prophylaxis, until post surgery Attestations Medical Necessity Statement*: Needs continued hospitalization secondary to acute cholecystitis requiring cholecystectomy Coding Level of Care Code Acute Supervisor Pipe Manufacture for [facility] F[facility] Diagnoses Cholecystitis K81.9 DM type 2 (diabetes mellitus, type 2) E11.9 Diabetes mellitus long-term insulin use: without truck terminal manager use Diabetes mellitus complication status: without complication
--- NOTE | 2019-09-14 14:50 | SUR.PHASEI ---
[id number] PATIENT TO MED SURG AT THIS TIME VIA BED. PATIENT A/OX3. RR EVEN AND UNLABORED. CONTINUES TO HAVE ABDOMINAL CRAMPING. ANESTHESIA, AWARE OF LAST ADMINISTERED MORPHINE. PATIENT NOTED TO HAVE 4 STABS, COVERED WITH BANDAIDS, CDI. ANGELA DRAIN TO RIGHT ABDOMEN. ASSISTED PATIENT TO BR ON ARRIVAL TO MED SURG. GAIT NOTED TO BE STEADY.
[2019-09-14] MEDS: HYDROcodone-acetaminophen 5-325 mg Tablet 1 TAB PO ×3 (15:05→23:35)
[2019-09-14] MEDS: sodium chloride 0.9% 1,000 ML 100 ML IV (16:08)
[2019-09-14 17:31] LABS: Glucose Point of Care 135 mg/dL (70-110)
[2019-09-14] MEDS: atorvastatin 40 mg Tablet 20 MG PO (20:23)
[2019-09-14] MEDS: acetaminophen 325 mg Tablet 650 MG PO (21:24)
[2019-09-15] VITALS (11 sets, daily range): BP systolic 125–145; BP diastolic 72–88; PULSE 84–101; RESP 16–24; TEMP 36.4–38.6; O2SAT 91–97
[2019-09-15] MEDS: sodium chloride 0.9% 1,000 ML 100 ML IV ×3 (02:09→21:48)
[2019-09-15] MEDS: HYDROcodone-acetaminophen 5-325 mg Tablet 1 TAB PO (03:36)
[2019-09-15] MEDS: morphine 4 mg/mL SDV 1 mL 2 MG IVP (05:07)
--- NOTE | 2019-09-15 06:27 | PM.PN ---
Subjective Subjective: Interval history: Patient overall feels better,yet he complains of lower abdominal pain Bladder scan was done bedside per my request and showed 150-200 ml WBC count normalized and slight elevation in LFTs which is expected after cauterization of the gallbladder fossa yet his bilirubin within normal limits Vitals/I&O/Wt Last Vital Signs Temp 99.2 F 09/15/19 05:30 Pulse 90 09/15/19 03:40 Resp 24 H 09/15/19 05:07 BP 134/81 09/15/19 03:40 Pulse Ox 93 09/15/19 03:40 09/14/19 09/14/19 09/15/19 14:59 22:59 06:59 Intake Total 496.667 / 496.667 290 / 817.925 1594 / 2236.667 Output Total 100 / 100 90 / 190 410 / 600 Balance 396.667 / 396.667 200 / 697.091 7844 / 1636.667 Weight last 48 hrs Weight 180 lb Physical Exam Const: COMMON NORMALS: oriented x3 GENERAL APPEARANCE: cooperative and anxious ORIENTATION/CONSCIOUSNESS: Yes awake, Yes oriented to person, Yes oriented to place and Yes oriented to time Eye: COMMON NORMALS: PERRL and no scleral icterus PUPIL: Yes PERRL Resp: COMMON NORMALS: clear to auscultation bilaterally AUSCULTATION: clear to auscultation bilaterally Cardio: COMMON NORMALS: S1 normal heart sound and S2 normal heart sound; negative for no murmurs HEART SOUNDS: S1 normal and S2 normal GI: COMMON NORMALS: soft to palpation; negative for no hepatosplenomegaly INSPECTION: Yes normal to inspection PALPATION: Yes soft, No firm, Yes tender Details: RLQ, No guarding, No rigid, No no hepatosplenomegaly and Yes other (Dry dressing) GI image (male): 1. Right upper quadrant drain with serosanguineous output. Neuro: COMMON NORMALS: oriented x3 SENSORIUM/ORIENTATION: Yes oriented to person, Yes oriented to place and Yes oriented to time Psych: COMMON NORMALS: mental status grossly normal Data : 09/15/19 04:10 09/15/19 04:10 Micro: Microbiology 09/14/19 12:43 Gram Stain - Final Gallbladder Fluid 09/13/19 17:51 Blood Culture - Preliminary Blood NEGATIVE TO DATE 09/13/19 17:50 Blood Culture - Preliminary Blood NEGATIVE TO DATE A&P Assessment and plan (1) Cholecystitis: Patient undergone laparoscopic cholecystectomy yesterday and overall did well Advance diet as tolerated Ambulation 3-4 times down the kern at least 200 feet each time 500 bolus of normal saline We will switch pain medications to hydrocodone 10 325 mg p.o. every 4 hours as needed Will DC Tylenol p.o. and continue IV Tylenol We will continue coordinating with the hospitalist From surgical standpoint of view patient is making very good progressI do believe that he would benefit from antibiotics for at least 7 days after surgery. Upon discharge he can follow-up with me in the office in 1 week Status: Resolved Code(s): K81.9 - Cholecystitis, unspecified Attestations Medical Necessity Statement*: Per hospitalist service Coding Level of Care Code Acute Molder Apprentice for g Fwd Exam Problem Focused Diagnoses Cholecystitis K81.9 Time Spent (min) 15
[2019-09-15 06:37] LABS: Glucose Point of Care 138 mg/dL (70-110)
[2019-09-15 06:42] LABS: Hematocrit 36.4 % (42.0-52.0); Hemoglobin 11.8 g/dL (11.7-16.6); Mean Corpuscular HGB Conc 32.4 g/dL (30.0-36.0); Mean Corpuscular Hemoglobin 27.4 pg (28.0-34.0); Mean Corpuscular Volume 84.5 fL (80-94); Mean Platelet Volume 13.5 fL (7.4-10.4); Platelet Count 157 10^3/cmm (130-400); Red Blood Count 4.31 10^6/uL (4.1-5.3); Red Cell Distribution Width 13.9 % (12.1-15.1); White Blood Count 8.4 10^3/uL (4.0-10.0)
[2019-09-15 06:46] LABS: Alanine Aminotransferase 56 U/L (0-41); Albumin Level 3.1 g/dL (3.5-5.2); Alkaline Phosphatase 82 IU/L (40-130); Anion Gap 17.7 (5-19); Aspartate Amino Transferase 90 U/L (0-40); Blood Urea Nitrogen 15 mg/dL (6-20); Calcium 8.7 mg/Dl (8.6-10.0); Carbon Dioxide 21 mmol/L (22-29); Chloride 100 mmol/L (98-107); Globulin 3.4 g/dL (1.3-4.6); Glomerular Filtration Rate 116.2 mL/min (90-130); Glucose 161 mg/dL (74-109); Potassium 3.7 mmol/L (3.5-5.1); Sodium 135 mmol/L (136-145); Total Bilirubin 0.6 mg/dL (0.15-1.2); Total Protein 6.5 g/dL (6.6-8.7)
[2019-09-15 06:58] LABS: Absolute Segmented Neutrophil 4.7 10/cmm (1.6-7.1); Band Neutrophils Absolute 2.5 10^3/cmm (0.0-1.2); Lymphocytes 8 %; Monocytes Absolute 0.5 10^3/cmm (0.1-0.6); Segmented Neutrophils 56 %; Total Cells Counted 100 (0-100)
[2019-09-15 06:59] LABS: Platelet Estimate Normal (Normal)
[2019-09-15] MEDS: HYDROcodone-acetaminophen 10-325 mg Tablet 1 TAB PO ×4 (08:02→19:59)
[2019-09-15] MEDS: atorvastatin 40 mg Tablet 20 MG PO (08:03)
[2019-09-15] MEDS: tamsulosin 0.4 mg Capsule PO ×2 (08:03→20:02)
[2019-09-15] MEDS: piperacillin-tazobactam 3.375 GM in sodium chloride 0.9% (plus) 50 ML IV ×2 (08:04→16:18)
[2019-09-15] MEDS: pregabalin 150 mg Capsule PO ×2 (08:04→17:27)
[2019-09-15] MEDS: sodium chloride 0.9% 500 ML 999 ML IV (08:06)
--- NOTE | 2019-09-15 08:16 | ANE.PACU ---
 Inpatient post-anesthesia follow up: Airway intact: Yes Vital signs: Temperature 98.5 F Pulse Rate [Right Radial] 93 Pulse Rate 94 Respiratory Rate 20 Blood Pressure [Le ft Arm] 134/80 Blood Pressure 101/73 Pulse Oximetry 96 Oxygen Delivery Me thod Room Air Oxygen Flow Rate 8 Fraction of Inspir ed Oxygen Hydration adequate: Yes Nausea and vomiting: No Pain level: 8 Mental status: Baseline Additional Comments: Patient complaining of continued cramping abdominal pain, which was present before surgery
[2019-09-15] MEDS: cyclobenzaprine 10 mg Tablet PO ×2 (10:18→19:59)
[2019-09-15] MEDS: enoxaparin 40 mg/0.4 mL Syringe SUBCUT (10:18)
[2019-09-15 10:48] LABS: Glucose Point of Care 175 mg/dL (70-110)
--- NOTE | 2019-09-15 11:50 | PM.PN ---
Subjective Subjective: Interval history: Remy reports his abdomen still hurts. He reports some nausea. No bowel movement yet. Medications: Reviewed: Yes Vitals/I&O/Wt Last Vital Signs Temp 98.0 F 09/15/19 11:32 Pulse 84 09/15/19 11:32 Resp 18 09/15/19 11:32 BP 136/80 09/15/19 11:32 Pulse Ox 95 09/15/19 11:32 09/14/19 09/15/19 09/15/19 22:59 06:59 14:59 Intake Total 290 / 257.459 3712 / 2286.667 605 / 605 Output Total 90 / 190 410 / 600 115 / 115 Balance 200 / 525.362 0055 / 1686.667 490 / 490 Weight last 48 hrs Weight 81.647 kg Physical Exam Narrative: EXAM NARRATIVE: General exam no apparent distress Cardiovascular regular rate and rhythm without murmur Lungs clear Abdomen positive bowel sounds. Mild tenderness. Extremities no cyanosis clubbing or edema Data : 09/15/19 04:10 09/15/19 04:10 Micro: Microbiology 09/14/19 12:43 Gram Stain - Final Gallbladder Fluid Body Fluid Culture - Preliminary Gram Negative Rods 09/13/19 17:51 Blood Culture - Preliminary Blood NEGATIVE TO DATE 09/13/19 17:50 Blood Culture - Preliminary Blood NEGATIVE TO DATE A&P Assessment and plan (1) Cholecystitis: Postoperative day #1 Continue Zosyn. Was febrile postoperative Continue support with IV fluids. Pain control Status: Resolved Code(s): K81.9 - Cholecystitis, unspecified (2) DM type 2 (diabetes mellitus, type 2): Sliding scale insulin Status: Acute Qualifiers: Diabetes mellitus long term care administrator insulin use: without long term care administrator use Diabetes mellitus complication status: without complication Qualified Code(s): E11.9 - Type 2 diabetes mellitus without complications Code(s): E11.9 - Type 2 diabetes mellitus without complications Additional A&P Information SCDs for DVT prophylaxis, Lovenox started today Attestations Medical Necessity Statement*: Needs continued hospitalization for IV antibiotics secondary to cholecystitis. Postoperative day #1 but had significant fever postoperatively. Coding Level of Care Code Acute Regional Vice President Life Sales for [facility] Diagnoses Cholecystitis K81.9 DM type 2 (diabetes mellitus, type 2) E11.9 Diabetes mellitus fdc insulin use: without long term care administrator use Diabetes mellitus complication status: without complication
[2019-09-15] MEDS: ibuprofen 600 mg Tablet PO (16:15)
[2019-09-15 16:53] LABS: Glucose Point of Care 121 mg/dL (70-110)
[2019-09-16] VITALS (7 sets, daily range): BP systolic 117–157; BP diastolic 67–90; PULSE 87–98; RESP 17–24; TEMP 36.9–38; O2SAT 90–96
[2019-09-16] MEDS: piperacillin-tazobactam 3.375 GM in sodium chloride 0.9% (plus) 50 ML IV ×3 (00:20→16:10)
[2019-09-16] MEDS: HYDROcodone-acetaminophen 10-325 mg Tablet 1 TAB PO ×5 (04:15→20:14)
[2019-09-16 06:04] LABS: Basophils % 0.3 %; Eosinophils % 0.2 %; Hematocrit 33.2 % (42.0-52.0); Hemoglobin 10.9 g/dL (11.7-16.6); Lymphocytes # 0.5 10^3/uL (0.8-4.8); Lymphocytes % 4.7 %; Mean Corpuscular HGB Conc 32.8 g/dL (30.0-36.0); Mean Corpuscular Hemoglobin 28.4 pg (28.0-34.0); Mean Corpuscular Volume 86.5 fL (80-94); Mean Platelet Volume 11.9 fL (7.4-10.4); Monocytes # 1.1 10^3/uL (0.2-0.9); Monocytes % 10.1 %; Neutrophils # 8.8 10^3/uL (1.8-7.7); Neutrophils % 84.4 %; Nucleated Red Blood Cells % 0 %; Platelet Count 163 10^3/cmm (130-400); Red Blood Count 3.84 10^6/uL (4.1-5.3); Red Cell Distribution Width 14.1 % (12.1-15.1); White Blood Count 10.4 10^3/uL (4.0-10.0)
[2019-09-16 06:27] LABS: Anion Gap 14.4 (5-19); Blood Urea Nitrogen 11 mg/dL (6-20); Calcium 8.5 mg/Dl (8.6-10.0); Carbon Dioxide 23 mmol/L (22-29); Chloride 100 mmol/L (98-107); Glomerular Filtration Rate 116.2 mL/min (90-130); Glucose 119 mg/dL (74-109); Potassium 3.4 mmol/L (3.5-5.1); Sodium 134 mmol/L (136-145)
--- NOTE | 2019-09-16 06:45 | PM.PN ---
Subjective Subjective: Interval history: Patient overall feels better,yet he did spike a fever yesterday So far tolerating clear liquid diet but did not pass gas yet Medications: Reviewed: Yes Vitals/I&O/Wt Last Vital Signs Temp 100.1 F H 09/16/19 05:17 Pulse 96 09/16/19 05:17 Resp 20 H 09/16/19 05:17 BP 157/90 09/16/19 05:17 Pulse Ox 94 09/16/19 05:17 09/15/19 09/15/19 09/16/19 14:59 22:59 06:59 Intake Total 1388.333 / 7535.377 9759.667 / 3105.000 770 / 3875.000 Output Total 115 / 115 365 / 480 620 / 1100 Balance 1273.333 / 1366.061 7553.667 / 2625.000 150 / 2775.000 Physical Exam Const: COMMON NORMALS: oriented x3 GENERAL APPEARANCE: cooperative and anxious ORIENTATION/CONSCIOUSNESS: Yes awake, Yes oriented to person, Yes oriented to place and Yes oriented to time HENMT: COMMON NORMALS: normocephalic HEAD & SCALP: normocephalic Eye: COMMON NORMALS: PERRL and no scleral icterus PUPIL: Yes PERRL Lymph: LYMPHATIC: no lymphadenopathy noted Chest: COMMONS NORMALS: inspection of chest normal Resp: COMMON NORMALS: normal respiratory effort and clear to auscultation bilaterally AUSCULTATION: clear to auscultation bilaterally Cardio: COMMON NORMALS: S1 normal heart sound and S2 normal heart sound; negative for no murmurs HEART SOUNDS: S1 normal and S2 normal GI: COMMON NORMALS: soft to palpation; negative for no hepatosplenomegaly INSPECTION: Yes normal to inspection PALPATION: Yes soft, No firm, Yes tender (At the site of the drain insertion), No guarding, No rigid, No no hepatosplenomegaly and Yes other (Skin incisions clean dry and intact, drain in place with serosanguineous) Neuro: COMMON NORMALS: oriented x3 SENSORIUM/ORIENTATION: Yes oriented to person, Yes oriented to place and Yes oriented to time Psych: COMMON NORMALS: mental status grossly normal Skin: COMMON NORMALS: no rashes or lesions noted GENERAL SKIN EXAM: no rashes or lesions noted and other (Warm to touch) Data : 09/16/19 05:39 09/16/19 05:39 Micro: Microbiology 09/14/19 12:43 Gram Stain - Final Gallbladder Fluid Body Fluid Culture - Preliminary Gram Negative Rods A&P Assessment and plan (1) Cholecystitis: Status post laparoscopic cholecystectomy postoperative day 2 surgery 09/14/19 Ambulation 3-4 times down the kern at least 200 feet each time Incentive spirometer every hour We will add protein shakes once the patient start passing gas will advance his diet We will continue coordinating with the hospitalist Continue antimicrobial therapy Drain teaching and care Upon discharge he can follow-up with me in the office in 1 week Status: Resolved Code(s): K81.9 - Cholecystitis, unspecified Attestations Medical Necessity Statement*: Per hospitalist service Coding Level of Care Code Acute Cmm Programmer for [facility] Fwd Exam Problem Focused Diagnoses Cholecystitis K81.9
[2019-09-16 06:46] LABS: Glucose Point of Care 110 mg/dL (70-110)
[2019-09-16] MEDS: pregabalin 150 mg Capsule PO ×2 (08:16→18:08)
[2019-09-16] MEDS: atorvastatin 40 mg Tablet 20 MG PO (08:16)
[2019-09-16] MEDS: sodium chloride 0.9% 1,000 ML 100 ML IV ×2 (08:16→18:09)
[2019-09-16] MEDS: cyclobenzaprine 10 mg Tablet PO ×2 (09:41→20:19)
[2019-09-16] MEDS: enoxaparin 40 mg/0.4 mL Syringe SUBCUT (10:31)
--- NOTE | 2019-09-16 11:54 | PM.PN ---
Subjective Subjective: Interval history: Patient reports his abdomen feels a little bit bloated. He still has not had a bowel movement and is not passing much gas. Otherwise he reports he is doing okay. He has been up walking. Medications: Reviewed: Yes Vitals/I&O/Wt Last Vital Signs Temp 98.5 F 09/16/19 08:00 Pulse 87 09/16/19 08:00 Resp 20 H 09/16/19 08:00 BP 134/72 09/16/19 08:00 Pulse Ox 90 09/16/19 08:00 09/15/19 09/16/19 09/16/19 22:59 06:59 14:59 Intake Total 1716.667 / 3105.000 770 / 3875.000 1420 / 1420 Output Total 365 / 480 620 / 1100 15 / Balance 1351.667 / 2625.000 150 / 2775.000 1405 / 1405 Physical Exam Narrative: EXAM NARRATIVE: General exam no apparent distress Cardiovascular regular in rhythm without murmur Lungs clear Abdomen is slightly distended. Positive bowel sounds are noted. Surgical site without evidence of infection Extremities no cyanosis clubbing or edema Data : 09/16/19 05:39 09/16/19 05:39 Micro: Microbiology 09/14/19 12:43 Gram Stain - Final Gallbladder Fluid Body Fluid Culture - Preliminary Gram Negative Rods A&P Assessment and plan (1) Cholecystitis: Postoperative day #2 Continue Zosyn. Was febrile postoperative Continue support with IV fluids. Pain control Status: Resolved Code(s): K81.9 - Cholecystitis, unspecified (2) DM type 2 (diabetes mellitus, type 2): Sliding scale insulin Status: Acute Qualifiers: Diabetes mellitus assistant terminal manager insulin use: without assistant terminal manager use Diabetes mellitus complication status: without complication Qualified Code(s): E11.9 - Type 2 diabetes mellitus without complications Code(s): E11.9 - Type 2 diabetes mellitus without complications Additional A&P Information SCDs for DVT prophylaxis, Lovenox started today Attestations Medical Necessity Statement*: Needs continued hospitalization for IV antibiotics secondary to acute cholecystitis. Postoperatively still having some temperature elevation. Coding Level of Care Code Acute Hydroelectric Plant Operator for [facility] Diagnoses Cholecystitis K81.9 DM type 2 (diabetes mellitus, type 2) E11.9 Diabetes mellitus prison insulin use: without prison use Diabetes mellitus complication status: without complication
[2019-09-16 11:57] LABS: Glucose Point of Care 152 mg/dL (70-110)
[2019-09-16 17:33] LABS: Glucose Point of Care 163 mg/dL (70-110)
[2019-09-16] MEDS: tamsulosin 0.4 mg Capsule PO (20:14)
[2019-09-17] VITALS (7 sets, daily range): BP systolic 95–131; BP diastolic 50–82; PULSE 81–104; RESP 16–20; TEMP 37.1–37.5; O2SAT 91–95
[2019-09-17] MEDS: piperacillin-tazobactam 3.375 GM in sodium chloride 0.9% (plus) 50 ML IV ×4 (00:19→23:49)
[2019-09-17] MEDS: HYDROcodone-acetaminophen 10-325 mg Tablet 1 TAB PO ×5 (00:19→22:57)
[2019-09-17] MEDS: sodium chloride 0.9% 1,000 ML 100 ML IV ×2 (03:57→14:57)
[2019-09-17 05:53] LABS: Basophils % 0.3 %; Eosinophils # 0.1 10^3/uL (0.0-0.8); Eosinophils % 0.5 %; Hematocrit 33.3 % (42.0-52.0); Hemoglobin 10.8 g/dL (11.7-16.6); Lymphocytes # 0.8 10^3/uL (0.8-4.8); Lymphocytes % 5.7 %; Mean Corpuscular HGB Conc 32.4 g/dL (30.0-36.0); Mean Corpuscular Hemoglobin 27.1 pg (28.0-34.0); Mean Corpuscular Volume 83.7 fL (80-94); Mean Platelet Volume 12.1 fL (7.4-10.4); Monocytes # 1.3 10^3/uL (0.2-0.9); Monocytes % 8.8 %; Neutrophils % 83.5 %; Nucleated Red Blood Cells % 0 %; Platelet Count 224 10^3/cmm (130-400); Red Blood Count 3.98 10^6/uL (4.1-5.3); Red Cell Distribution Width 14.3 % (12.1-15.1); White Blood Count 14.4 10^3/uL (4.0-10.0)
[2019-09-17 06:13] LABS: Anion Gap 14.3 (5-19); Blood Urea Nitrogen 10 mg/dL (6-20); Calcium 8.7 mg/Dl (8.6-10.0); Carbon Dioxide 23 mmol/L (22-29); Chloride 101 mmol/L (98-107); Glomerular Filtration Rate 138.9 mL/min (90-130); Glucose 142 mg/dL (74-109); Potassium 3.3 mmol/L (3.5-5.1); Sodium 135 mmol/L (136-145)
--- NOTE | 2019-09-17 06:15 | P.PN_ITS ---
Subjective Subjective: Interval history: Patient overall feels better No acute events overnight Recorded temperature 100.4 yesterday evening, WBC count went up to 14,000+ today Did not pass gas yet but he feels that he is about to have a bowel movement Medications: Reviewed: Yes Vitals/I&O/Wt Last Vital Signs Temp 99.1 F 09/17/19 04:40 Pulse 96 09/17/19 04:40 Resp 19 H 09/17/19 04:40 BP 117/68 09/17/19 04:40 Pulse Ox 91 09/17/19 04:40 09/16/19 09/16/19 09/17/19 14:59 22:59 06:59 Intake Total 1470 / 1470 1278.333 / 2748.333 1510 / 4258.333 Output Total 65 / 80 Balance 1455 / 1455 1213.333 / 2668.333 1510 / 4178.333 Physical Exam Const: COMMON NORMALS: oriented x3 GENERAL APPEARANCE: cooperative ORIENTATION/CONSCIOUSNESS: Yes awake, Yes oriented to person, Yes oriented to place and Yes oriented to time HENMT: COMMON NORMALS: normocephalic HEAD & SCALP: normocephalic Eye: COMMON NORMALS: PERRL and no scleral icterus PUPIL: Yes PERRL Lymph: LYMPHATIC: no lymphadenopathy noted Chest: COMMONS NORMALS: inspection of chest normal Resp: COMMON NORMALS: normal respiratory effort and clear to auscultation bilaterally AUSCULTATION: clear to auscultation bilaterally Cardio: COMMON NORMALS: S1 normal heart sound and S2 normal heart sound; negative for no murmurs HEART SOUNDS: S1 normal and S2 normal GI: COMMON NORMALS: soft to palpation; negative for no hepatosplenomegaly INSPECTION: Yes normal to inspection PALPATION: Yes soft, No firm, Yes tender (At the site of the drain insertion), No guarding, No rigid, No no hepatosplenomegaly and Yes other (Skin incisions clean dry and intact, drain in place with serosanguineous) Neuro: COMMON NORMALS: oriented x3 SENSORIUM/ORIENTATION: Yes oriented to person, Yes oriented to place and Yes oriented to time Psych: COMMON NORMALS: mental status grossly normal Skin: COMMON NORMALS: no rashes or lesions noted GENERAL SKIN EXAM: no rashes or lesions noted and other (Warm to touch) Data : 09/17/19 05:02 09/17/19 05:02 Micro: Microbiology 09/14/19 12:43 Gram Stain - Final Gallbladder Fluid Body Fluid Culture - Preliminary Escherichia coli A&P Assessment and plan (1) Cholecystitis: Status post laparoscopic cholecystectomy postoperative,surgery 09/14/19 Ambulation 3-4 times down the kern at least 200 feet each time Incentive spirometer every hour Continue protein shakes once the patient start passing gas will advance his diet as tolerated Will add Metamucil powder twice daily We will continue coordinating with Dr. Otto Continue antimicrobial therapy Drain teaching and care I certainly prefer to have the patient 24-hour duration At least without fevers prior to discharge home. Drain teaching and education. Status: Resolved Code(s): K81.9 - Cholecystitis, unspecified Attestations Medical Necessity Statement*: Medical necessity care is expected to cross 2 midnights Time Spent in Patient Care: less than 15 minutes (>than 50% of time spent in counselling and/or direct pt care on unit) . Coding Level of Care Code Acute Publicity Agent for [facility] Fwd Exam Problem Focused Diagnoses Cholecystitis K81.9 Time Spent (min) 15
[2019-09-17 06:40] LABS: Glucose Point of Care 118 mg/dL (70-110)
[2019-09-17] MEDS: cyclobenzaprine 10 mg Tablet PO (08:30)
[2019-09-17] MEDS: pregabalin 150 mg Capsule PO ×2 (08:30→17:51)
[2019-09-17] MEDS: atorvastatin 40 mg Tablet 20 MG PO (08:30)
[2019-09-17] MEDS: psyllium powder Pkt 1 PACKET PO ×2 (08:31→17:51)
[2019-09-17] MEDS: enoxaparin 40 mg/0.4 mL Syringe SUBCUT (09:36)
[2019-09-17 12:09] LABS: Glucose Point of Care 175 mg/dL (70-110)
--- NOTE | 2019-09-17 15:10 | PM.PN ---
Subjective Subjective: Interval history: Remy reports that he is feeling a little bit better. Still has not passed gas. No bowel movement. Less abdominal pain. Medications: Reviewed: Yes Vitals/I&O/Wt Last Vital Signs Temp 98.9 F 09/17/19 11:00 Pulse 88 09/17/19 11:00 Resp 16 09/17/19 11:00 BP 121/82 09/17/19 11:00 Pulse Ox 94 09/17/19 11:00 09/17/19 09/17/19 09/17/19 06:59 14:59 22:59 Intake Total 1510 / 4258.333 1240 / 1240 Output Total 55 / 55 Balance 1500 / 4168.333 1185 / 1185 Physical Exam Narrative: EXAM NARRATIVE: General exam no apparent distress Cardiovascular regular in rhythm without murmur Lungs clear Abdomen is not tender. Positive bowel sounds are noted. Surgical site without evidence of infection Extremities no cyanosis clubbing or edema Data : 09/17/19 05:02 09/17/19 05:02 Micro: Microbiology 09/14/19 12:43 Gram Stain - Final Gallbladder Fluid Body Fluid Culture - Preliminary Escherichia coli A&P Assessment and plan (1) Cholecystitis: Postoperative day #3 Continue Zosyn. Would like him to be afebrile for 24 hours prior to discharge Continue support with IV fluids. Pain control Status: Resolved Code(s): K81.9 - Cholecystitis, unspecified (2) DM type 2 (diabetes mellitus, type 2): Sliding scale insulin Status: Acute Qualifiers: Diabetes mellitus watermelon inspector insulin use: without watermelon inspector use Diabetes mellitus complication status: without complication Qualified Code(s): E11.9 - Type 2 diabetes mellitus without complications Code(s): E11.9 - Type 2 diabetes mellitus without complications Additional A&P Information SCDs for DVT prophylaxis, Lovenox started today Attestations Medical Necessity Statement*: Needs continued hospitalization for IV antibiotics secondary to acute cholecystitis post surgery Coding Level of Care Code Acute Independent Film Maker for [facility] Diagnoses Cholecystitis K81.9 DM type 2 (diabetes mellitus, type 2) E11.9 Diabetes mellitus watermelon inspector insulin use: without watermelon inspector use Diabetes mellitus complication status: without complication
[2019-09-17] MEDS: glycerin adult supp 1 EACH PR (16:07)
[2019-09-17 16:26] LABS: Glucose Point of Care 157 mg/dL (70-110)
--- NOTE | 2019-09-17 19:15 | PC.NURSE ---
Patient states, They are worried that I am getting to much Hydrocodone so they are only giving me 1 pill when I take 2 pills at home. I would rather just stick with the two Tylenol they give me more pain relief then just one Hydrocodone. Educated the patient that the Tylenol is what they are worried about him getting to much of and that his Tylenol order is only for every 8 hours. Educated the patient that he might not be able to go the full 8 hours without something for pain and that the Hydrocodone is available to him for pain. Patient verbalized understanding. Patient up to his chair at this time to finish his dinner.
[2019-09-17 20:52] LABS: Glucose Point of Care 155 mg/dL (70-110)
[2019-09-17] MEDS: tamsulosin 0.4 mg Capsule PO (21:09)
--- NOTE | 2019-09-17 23:29 | PC.NURSE ---
pt up to bathroom with large bm, loose and formed stool and urine to toilet pt reports lots of gas.
[2019-09-18] VITALS (7 sets, daily range): BP systolic 123–164; BP diastolic 73–84; PULSE 74–100; RESP 16–22; TEMP 36.8–37.6; O2SAT 94–97
[2019-09-18] MEDS: cyclobenzaprine 10 mg Tablet PO (01:33)
--- NOTE | 2019-09-18 04:25 | PC.NURSE ---
Drain wit total of 20 ml output.
[2019-09-18 05:16] LABS: Basophils # 0.1 10^3/uL (0.0-0.1); Basophils % 0.4 %; Eosinophils # 0.2 10^3/uL (0.0-0.8); Eosinophils % 0.9 %; Hematocrit 32.8 % (42.0-52.0); Hemoglobin 10.7 g/dL (11.7-16.6); Lymphocytes # 1.6 10^3/uL (0.8-4.8); Lymphocytes % 10.1 %; Mean Corpuscular HGB Conc 32.6 g/dL (30.0-36.0); Mean Corpuscular Hemoglobin 27.2 pg (28.0-34.0); Mean Corpuscular Volume 83.5 fL (80-94); Mean Platelet Volume 11.4 fL (7.4-10.4); Monocytes # 1.4 10^3/uL (0.2-0.9); Monocytes % 8.9 %; Neutrophils # 12.1 10^3/uL (1.8-7.7); Neutrophils % 76.4 %; Nucleated Red Blood Cells % 0 %; Platelet Count 295 10^3/cmm (130-400); Red Blood Count 3.93 10^6/uL (4.1-5.3); Red Cell Distribution Width 14.5 % (12.1-15.1); White Blood Count 15.9 10^3/uL (4.0-10.0)
[2019-09-18 05:37] LABS: Anion Gap 17.5 (5-19); Blood Urea Nitrogen 9 mg/dL (6-20); Calcium 8.4 mg/Dl (8.6-10.0); Carbon Dioxide 21 mmol/L (22-29); Chloride 100 mmol/L (98-107); Glomerular Filtration Rate 138.9 mL/min (90-130); Glucose 150 mg/dL (74-109); Potassium 3.5 mmol/L (3.5-5.1); Sodium 135 mmol/L (136-145)
[2019-09-18] MEDS: HYDROcodone-acetaminophen 10-325 mg Tablet 1 TAB PO ×3 (06:09→23:27)
[2019-09-18 06:13] LABS: Slide Review Slide Review Perform
[2019-09-18 06:35] LABS: Glucose Point of Care 171 mg/dL (70-110)
--- NOTE | 2019-09-18 06:55 | PM.PN ---
Subjective Subjective: Interval history: Overall patient is feeling better and started passing gas and having bowel movement Tolerating p.o. intake Overall his pain is well controlled Some elevation in WBC count but no recorded fevers for the past 24-hour Vitals/I&O/Wt Last Vital Signs Temp 99.0 F 09/18/19 04:00 Pulse 88 09/18/19 04:00 Resp 22 H 09/18/19 04:00 BP 123/77 09/18/19 04:00 Pulse Ox 94 09/18/19 04:00 09/17/19 09/17/19 09/18/19 14:59 22:59 06:59 Intake Total 1290 / 1290 110 / 1400 1280 / 2680 Output Total 55 / 55 Balance 1235 / 1235 110 / 1345 1258 / 2603 Physical Exam Const: COMMON NORMALS: no apparent distress and oriented x3 GENERAL APPEARANCE: cooperative ORIENTATION/CONSCIOUSNESS: Yes awake, Yes oriented to person, Yes oriented to place and Yes oriented to time Eye: COMMON NORMALS: PERRL and no scleral icterus PUPIL: Yes PERRL Resp: COMMON NORMALS: normal respiratory effort and clear to auscultation bilaterally AUSCULTATION: clear to auscultation bilaterally Cardio: COMMON NORMALS: S1 normal heart sound and S2 normal heart sound; negative for no murmurs HEART SOUNDS: S1 normal and S2 normal GI: COMMON NORMALS: soft to palpation; negative for no hepatosplenomegaly INSPECTION: Yes normal to inspection and Yes other (Incisions are intact and skin zenobia in place) PALPATION: Yes soft, No firm, No tender, No guarding, No rigid, No no hepatosplenomegaly and Yes other (Right upper quadrant drain in place with serosanguineous output) Neuro: COMMON NORMALS: oriented x3 SENSORIUM/ORIENTATION: Yes oriented to person, Yes oriented to place and Yes oriented to time Data : 09/19/19 04:45 09/19/19 04:45 Micro: Microbiology 09/14/19 12:43 Gram Stain - Final Gallbladder Fluid Body Fluid Culture - Preliminary Escherichia coli A&P Assessment and plan (1) Cholecystitis: From surgical standpoint of view I do believe that the patient will be appropriate to be discharged on oral antibiotics for at least 10 days in the form of Cipro and Flagyl Return to surgery office in 1 week Drain teaching and education I did encourage the patient to have a full bariatric panel to check on his vitamin levels as an outpatient per PCP, as per my discussion with the patient he was not receiving adequate vitamins, I am concerned about potential vitamin B12 deficiency that can have detrimental effect on the patient including dementia, neuropathy and others Continue incentive spirometer at home Thank you for consulting general surgery to participate taking care Mr Marley Status: Resolved Code(s): K81.9 - Cholecystitis, unspecified Attestations Medical Necessity Statement*: Medical necessity care is expected to cross 2 midnights Time Spent in Patient Care: 16 - 35 minutes (>than 50% of time spent in counselling and/or direct pt care on unit). Coding Level of Care Code Acute Suspension Cord Tier for [facility] Fwd Exam Problem Focused Diagnoses Cholecystitis K81.9
[2019-09-18] MEDS: psyllium powder Pkt 1 PACKET PO (08:36)
[2019-09-18] MEDS: atorvastatin 40 mg Tablet 20 MG PO (08:36)
[2019-09-18] MEDS: pregabalin 150 mg Capsule PO ×2 (08:36→17:41)
[2019-09-18] MEDS: piperacillin-tazobactam 3.375 GM in sodium chloride 0.9% (plus) 50 ML IV ×3 (08:36→23:30)
--- NOTE | 2019-09-18 09:15 | PC.SOCIAL ---
IMM Page 2 of IMM explained to and signed by patient. He verbalizes understanding. Initialed, dated, and timed and placed in chart. Copy provided to patient.
[2019-09-18] MEDS: enoxaparin 40 mg/0.4 mL Syringe SUBCUT (09:52)
[2019-09-18 11:21] LABS: Glucose Point of Care 149 mg/dL (70-110)
[2019-09-18 17:39] LABS: Glucose Point of Care 147 mg/dL (70-110)
[2019-09-18] MEDS: acetaminophen 325 mg Tablet 650 MG PO (17:48)
--- NOTE | 2019-09-18 19:46 | P.PN_ITS ---
Subjective Subjective: Interval history: This morning patient states that he feels weak, would like to try a general diet, had 3 adequate bowel movements, no fevers, no chills, urinating appropriate, patient feels that he is too weak to go home today, as his will not be at home as she is attending the of their grandson, feels like he will be ready to go home tomorrow Medications: Reviewed: Yes Medication Review Details: -pending med rec Vitals/I&O/Wt Last Vital Signs Temp 99.7 F H 09/18/19 15:26 Pulse 89 09/18/19 16:28 Resp 18 09/18/19 16:28 BP 144/84 09/18/19 15:26 Pulse Ox 97 09/18/19 16:28 09/18/19 09/18/19 09/18/19 06:59 14:59 22:59 Intake Total 1330 / 2730 170 / 170 Output Total 22 / 77 10 / 10 Balance 1308 / 2653 170 / 170 -10 / 160 Physical Exam Const: COMMON NORMALS: no apparent distress and oriented x3 HENMT: COMMON NORMALS: normocephalic HEAD & SCALP: normocephalic Neck/C-Spine: COMMON NORMALS: no JVD Resp: COMMON NORMALS: normal respiratory effort, no retractions, no use of accessory muscles and clear to auscultation bilaterally AUSCULTATION: clear to auscultation bilaterally Cardio: COMMON NORMALS: no JVD, regular rate, regular rhythm, S1 normal heart sound and S2 normal heart sound RATE: regular rate RHYTHM: regular rhythm HEART SOUNDS: S1 normal and S2 normal GI: COMMON NORMALS: normal to inspection, nondistended, normoactive bowel sounds, soft to palpation, non-tender, no hepatosplenomegaly, no masses and no bruits PALPATION: Yes soft and Yes no hepatosplenomegaly Extremity: COMMON NORMALS: normal capillary refill, no clubbing, cyanosis or edema, no calf tenderness and no pedal edema Neuro: COMMON NORMALS: oriented x3 Psych: COMMON NORMALS: mental status grossly normal Data : 09/18/19 04:40 09/18/19 04:40 Micro: Microbiology 09/13/19 17:51 Blood Culture - Final Blood NO GROWTH AFTER 5 DAYS 09/13/19 17:50 Blood Culture - Final Blood NO GROWTH AFTER 5 DAYS 09/14/19 12:43 Gram Stain - Final Gallbladder Fluid Body Fluid Culture - Preliminary Escherichia coli A&P Assessment and plan (1) Cholecystitis: Postoperative day #4 Continue Zosyn. sTop IV fluids Pain control Status: Resolved Code(s): K81.9 - Cholecystitis, unspecified (2) DM type 2 (diabetes mellitus, type 2): Sliding scale insulin Status: Acute Qualifiers: Diabetes mellitus adjunct faculty for medical terminology insulin use: without adjunct faculty for medical terminology use Diabetes mellitus complication status: without complication Qualified Code(s): E11.9 - Type 2 diabetes mellitus without complications Code(s): E11.9 - Type 2 diabetes mellitus without complications Additional A&P Information SCDs for DVT prophylaxis, Lovenox started today Attestations Medical Necessity Statement*: Patient requires continued hospitalization for acute cholecystitis, Coding Level of Care Code Acute Solid Propellant Processor for [facility] Diagnoses Cholecystitis K81.9 DM type 2 (diabetes mellitus, type 2) E11.9 Diabetes mellitus adjunct faculty for medical terminology insulin use: without adjunct faculty for medical terminology use Diabetes mellitus complication status: without complication
[2019-09-18] MEDS: tamsulosin 0.4 mg Capsule PO (20:30)
[2019-09-18 21:24] LABS: Glucose Point of Care 193 mg/dL (70-110)
--- NOTE | 2019-09-18 22:23 | PC.NURSE ---
In room to round on patient. Patient appears to be sleeping at this time. Eyes are closed. Respirations even and non-labored on room air.
--- NOTE | 2019-09-18 23:39 | PC.NURSE ---
Patient states, I still don not want to walk in the [place] maybe in an hour or so. I was angry yesterday because I felt like they were trying to just kick me out of here and I was not able to go. Stated to patient that I was sorry if it felt that way. Stated to patient that I am sure that was not what they meant for him to be feeling. Asked patient if he had been using his urinal to void in. Patient states, No I have not used the urinal since I started going to the bathroom. I did not know I was supposed to be. Asked patient if from this time on if he would please use the urinal so we could measure is his urine. Patient states verbalized understanding and states, I will. Patient is currently sitting in the chair talking with his significant other on the phone. No other needs voiced at this time.
[2019-09-19] VITALS (7 sets, daily range): BP systolic 110–148; BP diastolic 64–80; PULSE 78–94; RESP 18–20; TEMP 36.2–37.3; O2SAT 93–97
--- NOTE | 2019-09-19 00:47 | PC.NURSE ---
In room to encourage patient to walk in the hallway at this time. Patient states, No I am ready to go to bed. I finally got a little pain relief and I am going back to sleep. Explained to the patient that he really needed to walk more and move around because the risk of him developing pneumonia from resting to much after a surgery was high. Patient states, I will walk in the morning. Patient also states, I am not putting those things back on my legs right now either. They make me hot.
[2019-09-19] MEDS: acetaminophen 325 mg Tablet 650 MG PO (04:25)
[2019-09-19 04:56] LABS: Basophils # 0.1 10^3/uL (0.0-0.1); Basophils % 0.4 %; Eosinophils # 0.3 10^3/uL (0.0-0.8); Eosinophils % 1.8 %; Hemoglobin 10.9 g/dL (11.7-16.6); Lymphocytes # 1.3 10^3/uL (0.8-4.8); Lymphocytes % 9.5 %; Mean Corpuscular Volume 81.9 fL (80-94); Mean Platelet Volume 10.7 fL (7.4-10.4); Monocytes # 1.4 10^3/uL (0.2-0.9); Monocytes % 10.3 %; Neutrophils # 10.2 10^3/uL (1.8-7.7); Neutrophils % 73.9 %; Nucleated Red Blood Cells % 0 %; Platelet Count 371 10^3/cmm (130-400); Red Blood Count 4.03 10^6/uL (4.1-5.3); Red Cell Distribution Width 14.3 % (12.1-15.1); White Blood Count 13.8 10^3/uL (4.0-10.0)
--- NOTE | 2019-09-19 05:11 | PC.NURSE ---
Patient still has not voided in the urinal he has been using the bathroom even thought he was asked to use the urinal for voiding. Patient states, I have been to the bathroom a couple times since 11 o'clock last night
[2019-09-19 05:17] LABS: Alanine Aminotransferase 43 U/L (0-41); Albumin Level 2.3 g/dL (3.5-5.2); Alkaline Phosphatase 135 IU/L (40-130); Anion Gap 16.3 (5-19); Aspartate Amino Transferase 44 U/L (0-40); Blood Urea Nitrogen 9 mg/dL (6-20); Calcium 8.3 mg/Dl (8.6-10.0); Carbon Dioxide 23 mmol/L (22-29); Chloride 101 mmol/L (98-107); Globulin 3.9 g/dL (1.3-4.6); Glomerular Filtration Rate 171.4 mL/min (90-130); Glucose 180 mg/dL (74-109); Magnesium 1.9 mg/dL (1.7-2.3); Phosphorus 3.9 mg/dL (2.5-4.5); Potassium 3.3 mmol/L (3.5-5.1); Sodium 137 mmol/L (136-145); Total Bilirubin 0.4 mg/dL (0.15-1.2); Total Protein 6.2 g/dL (6.6-8.7)
[2019-09-19 05:43] LABS: Slide Review Slide Review Perform
[2019-09-19 05:45] LABS: Absolute Eosinophils 0.1 10^3/cmm (0.0-0.7); Absolute Segmented Neutrophil 8.5 10/cmm (1.6-7.1); Band Neutrophils Absolute 2.5 10^3/cmm (0.0-1.2); Eosinophils 1 %; Lymphocytes 8 %; Lymphocytes Absolute 1.4 10^3/cmm (1.2-3.4); Monocytes Absolute 1.1 10^3/cmm (0.1-0.6); Segmented Neutrophils 62 %; Total Cells Counted 100 (0-100)
[2019-09-19 05:46] LABS: Platelet Estimate Normal (Normal)
[2019-09-19 06:35] LABS: Glucose Point of Care 157 mg/dL (70-110)
[2019-09-19] MEDS: piperacillin-tazobactam 3.375 GM in sodium chloride 0.9% (plus) 50 ML IV (07:53)
[2019-09-19] MEDS: enoxaparin 40 mg/0.4 mL Syringe SUBCUT (09:36)
[2019-09-19] MEDS: atorvastatin 40 mg Tablet 20 MG PO (09:36)
[2019-09-19] MEDS: cyclobenzaprine 10 mg Tablet PO (09:39)
[2019-09-19 11:43] LABS: Glucose Point of Care 170 mg/dL (70-110)
--- NOTE | 2019-09-19 15:58 | PM.DCS ---
Discharge Providers Date of Admission: 09/15/19 13:44 Date of Discharge: 09/19/19 Attending Provider at Admission: Areli Mahoney MD Attending Provider at Discharge: Mihir Kinney MD Primary Care Provider: Abdirahman Tidwell MD Diagnoses at Discharge Discharge Diagnosis (1) Cholecystitis: Status: Resolved (2) DM type 2 (diabetes mellitus, type 2): Status: Acute Problem details: On metformin Qualifiers: Diabetes mellitus chcf insulin use: without buttermaker continuous churn use Diabetes mellitus complication status: without complication Qualified Code(s): E11.9 - Type 2 diabetes mellitus without complications Reason for Visit Reason for Visit: Reason For Visit: lower abd pain, fever Hospital Course Discharge Summary: This is a 59-year-old male with a past medical history of [id number] type 2 diabetes mellitus who presents to the emergency room due to complaints of abdominal pain, fevers, decreased oral intake and nausea. Patient was admitted for acute cholecystitis, was started on IV fluids, broad-spectrum IV antibiotics, surgery was consulted. Dr. Dudley performed a laparoscopic cholecystectomy and placement of intra-abdominal drain, with postop findings of acute calculus necrotic cholecystitis with extensive edema and inflammation with surrounding adhesions. Postoperatively, patient had fevers, which resolved with broad-spectrum antibiotics, clinically improved, remained afebrile, tolerating a general diet well, and having regular bowel movements. Patient was discharged with ciprofloxacin and Flagyl for a total 10 days, has intra-abdominal drain in place, with a follow-up with Dr. Dudley as outpatient in 1 week, and instructions to monitor for fevers or worsening abdominal pain if so come back to the emergency room. Physical Exam Const: COMMON NORMALS: no apparent distress and oriented x3 GENERAL APPEARANCE: cooperative and comfortable HENMT: COMMON NORMALS: normocephalic HEAD & SCALP: normocephalic Eye: COMMON NORMALS: PERRL, EOMs intact bilaterally and no papilledema GENERAL EYE: normal appearance of both eyes PUPIL: Yes PERRL DIRECT OPHTHALMOSCOPY: Yes no papilledema Neck/C-Spine: COMMON NORMALS: full ROM, no lymphadenopathy, no JVD and thyroid normal THYROID: thyroid normal Lymph: LYMPHATIC: no lymphadenopathy noted Resp: COMMON NORMALS: normal respiratory effort, no retractions, no use of accessory muscles and clear to auscultation bilaterally AUSCULTATION: clear to auscultation bilaterally Cardio: COMMON NORMALS: no JVD, regular rate, regular rhythm, S1 normal heart sound, S2 normal heart sound, no gallops, no clicks and no murmurs RATE: regular rate RHYTHM: regular rhythm HEART SOUNDS: S1 normal and S2 normal GI: COMMON NORMALS: normal to inspection, nondistended, normoactive bowel sounds, soft to palpation, non-tender and no hepatosplenomegaly PALPATION: Yes soft and Yes no hepatosplenomegaly OTHER: Drain in place Extremity: COMMON NORMALS: normal to inspection, full ROM and no pedal edema Neuro: COMMON NORMALS: oriented x3, CN's II-XII intact bilaterally, moves all extremities and no focal motor deficits Psych: COMMON NORMALS: mental status grossly normal, thought process normal and cooperative THOUGHT PROCESS: normal thought process Discharge Data Data Completed and Pending: Completed Studies During Hospitalization Category Date Time Status CT abdomen pelvis w con* [id number] Urge nt Cat Scan 09/13/19 21:02 Completed XR chest 1V osei ble [id number] Urgent Exams 09/13/19 17:31 Completed Pathology: Surgic al [PTH] Routine Pth 09/14/19 13:43 Completed Pending at discharge Category Date Time Status ES surgery / GI i mages Routine Exams 09/14/19 11:53 Taken Body Fluid Cultur e & GS Routine Lab 09/14/19 12:43 Results CBC [Complete Blo od Count w/Auto] A M LABS Lab 09/20/19 04:00 Ordered CBC [Complete Blo od Count w/Auto] A M LABS Lab 09/21/19 04:00 Ordered Comprehensive Met abolic Panel AM LA BS Lab 09/20/19 04:00 Ordered Comprehensive Met abolic Panel AM LA BS Lab 09/21/19 04:00 Ordered Magnesium AM LABS Lab 09/20/19 04:00 Ordered Magnesium AM LABS Lab 09/21/19 04:00 Ordered Phosphorus AM LAB S Lab 09/20/19 04:00 Ordered Phosphorus AM LAB S Lab 09/21/19 04:00 Ordered Labs from last 24 hours 09/19/19 09/19/19 09/19/19 11:25 06:25 04:45 WBC RBC Hgb Hct MCV MCH MCHC RDW Plt Count MPV Neut % (Auto) Lymph % (Auto) Blount % (Auto) Eos % (Auto) Baso % (Auto) Neut # (Auto) Lymph # (Auto) Blount # (Auto) Eos # (Auto) Baso # (Auto) Nucleated RBC % (a uto) Total Counted Atypical Lymphs % Segmented Neutroph ils Band Neutrophils Absolute Lymphocyt es Lymphocytes (Manua l) Monocytes (Manual) Absolute Monocytes Eosinophils (Manua l) Absolute Eosinophi ls Myelocytes Nucleated RBCs # Platelet Estimate Sodium 137 Potassium 3.3 L Chloride 101 Carbon Dioxide 23 Anion Gap 16.3 BUN 9 Creatinine 0.5 L GFR Calculation 171.4 H Glucose 180 H POC Glucose 170 157 Calcium 8.3 L Phosphorus 3.9 Magnesium 1.9 Total Bilirubin 0.4 AST 44 H ALT 43 H Alkaline Phosphata se 135 H Total Protein 6.2 L Albumin 2.3 L Globulin 3.9 09/19/19 09/18/19 09/18/19 04:45 21:16 17:33 WBC 13.8 H RBC 4.03 L Hgb 10.9 L Hct 33.0 L MCV 81.9 MCH 27.0 L MCHC 33.0 RDW 14.3 Plt Count 371 MPV 10.7 H Neut % (Auto) 73.9 Lymph % (Auto) 9.5 Blount % (Auto) 10.3 Eos % (Auto) 1.8 Baso % (Auto) 0.4 Neut # (Auto) 10.2 H Lymph # (Auto) 1.3 Blount # (Auto) 1.4 H Eos # (Auto) 0.3 Baso # (Auto) 0.1 Nucleated RBC % (a uto) 0 Total Counted 100 Atypical Lymphs % 2.0 Segmented Neutroph ils 62 Band Neutrophils 18.0 Absolute Lymphocyt es 1.4 Lymphocytes (Manua l) 8 Monocytes (Manual) 8.0 Absolute Monocytes 1.1 H Eosinophils (Manua l) 1 Absolute Eosinophi ls 0.1 Myelocytes 1.0 Nucleated RBCs # 0.0 Platelet Estimate Normal Sodium Potassium Chloride Carbon Dioxide Anion Gap BUN Creatinine GFR Calculation Glucose POC Glucose 193 147 Calcium Phosphorus Magnesium Total Bilirubin AST ALT Alkaline Phosphata se Total Protein Albumin Globulin Vitals: Last Vital Signs Temp 97.1 F L 09/19/19 15:42 Pulse 84 09/19/19 15:42 Resp 18 09/19/19 15:42 BP 110/71 09/19/19 15:42 Pulse Ox 93 09/19/19 15:42 Discharge Plan Discharge Patient Disposition: Home, Self-Care Condition: Stable Prescriptions: New ciprofloxacin HCl 500 mg tablet 500 mg PO BID 10 Days Qty: 20 RF: 0 Flagyl 500 mg tablet 500 mg PO Q8H 10 Days Qty: 30 RF: 0 Continued hydrocodone-acetaminophen 10-325 mg tablet 1 - 2 tab PO Q4H PRN (Reason: Pain) RF: 0 ketoconazole 2 % shampoo 1 applic TOPICAL DIRECTED RF: 0 lisinopril 5 mg tablet 1 mg PO DAILY RF: 0 lovastatin 20 mg tablet 1 mg PO DAILY RF: 0 Lyrica 150 mg capsule 1 mg PO BID RF: 0 metformin 850 mg tablet 1 mg PO DAILY RF: 0 tamsulosin 0.4 mg capsule 1 mg PO DAILY RF: 0 tramadol 50 mg tablet 1 - 2 mg PO Q4H PRN (Reason: pain) RF: 0 triamcinolone acetonide 0.1 % cream 1 applic TOPICAL PRN PRN (Reason: Rash) RF: 0 Discharge Orders: Discharge Order (Routine); Ordered 09/19/19 Ordered By: Mihir Kinney Other Ambulatory Orders: DME: [employer] (Order) Location: None Selected Ordered By: Mihir Kinney Referrals: Antonio Dudley MD [Physician] - 09/27/19 2:30 am Discharge Diet: Advance as tolerated Discharge Activity: Resume usual activity Patient Instructions: Ciprofloxacin (By mouth), Metronidazole (By mouth), Satya-Schuster Drain Care (GEN), Laparoscopic Cholecystectomy (DC), OP Post-Operative Instructions Activity Restrictions/Additional Instructions: -Follow-up with surgery in 1 week -Follow-up with primary care in 1 to 2 weeks -If you have recurring abdominal pain, fevers, chills, nausea, vomiting come back to the emergency room -Take antibiotics as prescribed Discharge Attestations Time Spent in Discharge Care*: less than 30 min Quality Metrics Clinical Quality Measures During this hospital stay, did patient experience: None Coding Level of Care Code Acute Public Health Dietitian for g Fwd Diagnoses Cholecystitis K81.9 DM type 2 (diabetes mellitus, type 2) E11.9 Diabetes mellitus buttermaker continuous churn insulin use: without buttermaker continuous churn use Diabetes mellitus complication status: without complication
== END 2019-09-19 18:00 | disposition home or self-care (01) | DRG 419 ==
LOC: ER 20:52 → MEDSURG 09-14 00:34
PROVIDERS: Emergency Medicine; Internal Medicine; Surgery; Admitting Provider Family Medicine; Emergency Provider Emergency Medicine; PCP Family Medicine Geriatric Medicine; Visit Provider Family Medicine
PROC: 0FT44ZZ Resection of Gallbladder, Percutaneous Endoscopic Approach (ICD-10-PCS; CPT 47562; principal; 2019-09-14 12:05)
DX: K80.00 Calculus of gallbladder with acute cholecystitis without obstruction (principal); Z79.84 Long term (current) use of oral hypoglycemic drugs; E11.40 Type 2 diabetes mellitus with diabetic neuropathy, unspecified; E78.5 Hyperlipidemia, unspecified; I10 Essential (primary) hypertension; Z87.891 Personal history of nicotine dependence; Z79.899 Other long term (current) drug therapy
CPT/HCPCS: 12345; 36415; 36416; 71045; 74177; 80048; 80053; 81003; 82962; 83036; 83605; 83735; 84100; 85007; 85025; 85027; 85610; 87040; 87070; 87075; 87077; 87186; 87205; 87804; 88304; 94640; 96365; 96372; 96375; 99282; G0378; J0131; J1644; J1650; J1885; J2001; J2270; J2405; J2543; J2704; J2710; J3010; J3490; J7030; J7040; Q9967

== ENCOUNTER 2019-10-03 20:58 | Observation (INO) | payer MEDICARE, SELFPAY ==
[2019-10-03] VITALS (8 sets, daily range): BP systolic 130–149; BP diastolic 77–99; PULSE 85–93; RESP 13–16; TEMP 36.6; O2SAT 96–99; BMI 33.7
--- NOTE | 2019-10-03 21:05 | ECG_ITS ---
Measurements Intervals [place] Rate: 85 P: 147 [place]: 135 QRS: 51 QRSD: 89 T: 151 QT: 350 QTc: 417 SINUS RHYTHM WITH OCCASIONAL VENTRICULAR PREMATURE COMPLEXES LOW QRS VOLTAGE IN EXTREMITY LEADS [QRS DEFLECTION < 0.5 mV IN LIMB LEADS] ABNORMAL QRS-T ANGLE [QRS-T AXIS DIFFERENCE > 60] No previous ECG available for comparison Electronically Signed On 10-04-2019 9:27:56 JOB ESTIMATOR by Vahe Galicia M.D. [email or web address]
--- NOTE | 2019-10-03 21:05 | XR_ITS ---
WS: [id number] CHEST XRAY TECHNIQUE: Portable chest. CLINICAL INFORMATION: cp COMPARISON: September 13, 2019 FINDINGS: Heart: Cardiomegaly Lungs: Lungs are clear. No consolidation or pleural effusion. Mild chronic emphysematous changes. A f ew calcified granulomas. Bones: Hypertrophic changes thoracic spine. XR/XR chest 1V portable [id number] IMPRESSION: No acute chest findings
--- NOTE | 2019-10-03 21:09 | ED_ITS ---
Entered by Lucina Portillo, acting as scribe for Elfego Clark MD HPI - Chest Pain General: Chief Complaint: Chest Pain Stated Complaint: CHEST PAIN, LEFT SIDE PAIN Time Seen by Provider: 10/03/19 21:06 Source: patient and family Mode of arrival: wheelchair History of Present Illness: HPI narrative: 59 y/o male presents to the ED with complaint of chest pain. Pt states he was on his way back from [facility] when this started. Pt states he recently had his gallbladder removed by Dr. Dudley and a drain placed. He says there has been almost no drainage for the past 1-2 days. complaint: chest pain and other (abd pain) Onset (ago): minute(s) Timing of current episode: constant Pain radiation: abdomen Severity: moderate Relieving factors: nothing Exacerbating factors: inspiration and movement Context: recent surgery (gallbladder removal) Associated symptoms: Reports abdominal pain (LUQ); Deny dyspnea, fever(s), nausea or vomiting Review of Systems Const: Denies: fever, chills, body aches or change in appetite Eyes: Denies: blurry vision or eye discomfort ENMT: Denies: throat pain or dental pain Card: Reports: chest pain Resp: Denies: shortness of breath GI: Reports: abdominal pain (LUQ); Denies: nausea, vomiting or diarrhea : Denies: painful urination Musc: Denies: neck pain or back pain Skin/Breast: Denies: rash Neuro: Denies: headache Psych: Denies: depression Dmitry/Lymph: Denies: easy bruising All/Imm: Denies: hives PFSH ED PFSH: Statuses (acute, chronic, etc) shown below reflect problem list status as previously entered and may not be historically accurate Social History Smoking and tobacco status: never smoked Quit status (tobacco): has quit using tobacco Year quit tobacco: 20 years ago Alcohol intake: former Year of sobriety/quit date alcohol: 20 years ago Lives independently: Yes Household members: spouse Housing: House Current occupational status: disabled History of recent travel: No Physical Exam Const: COMMON NORMALS: oriented x3 and healthy appearing HENMT: COMMON NORMALS: normocephalic and head/scalp atraumatic HEAD & SCALP: normocephalic and atraumatic Eye: COMMON NORMALS: PERRL and EOMs intact bilaterally PUPIL: Yes PERRL Neck/C-Spine: COMMON NORMALS: full ROM and supple Chest: COMMONS NORMALS: inspection of chest normal and palpation of chest normal Resp: COMMON NORMALS: normal respiratory effort, no retractions, no use of accessory muscles and clear to auscultation bilaterally AUSCULTATION: clear to auscultation bilaterally Cardio: COMMON NORMALS: regular rate, regular rhythm and no murmurs RATE: regular rate RHYTHM: regular rhythm GI: COMMON NORMALS: soft to palpation and no masses PALPATION: Yes soft and Yes tender (LUQ) Extremity: COMMON NORMALS: normal to inspection and full ROM Neuro: COMMON NORMALS: oriented x3, moves all extremities and no focal motor deficits Psych: COMMON NORMALS: mental status grossly normal, thought process normal and cooperative THOUGHT PROCESS: normal thought process Skin: COMMON NORMALS: no rashes or lesions noted and no wounds GENERAL SKIN EXAM: no rashes or lesions noted Course Vital Signs: Vital signs: Vital Signs Temperature 97.8 F 10/03/19 21:01 Pulse Rate 90 10/03/19 23:30 Respiratory Rate 16 10/03/19 23:30 Blood Pressure 130/77 10/03/19 23:30 Pulse Oximetry 96 10/03/19 23:30 MDM - Chest Pain MDM Narrative: Medical decision making narrative: Patient presents here with abdominal pain is found to have an intra-abdominal abscess. I spoke to surgery Dr. Dudley who recommended admission and likely drainage by radiology. I spoke to Dr. Osullivan of hospitalist will admit. Patient given IV antibiotics here. Patient has no signs of shock or septic shock. Patient has been stable while here. Lab Data: Labs: Lab Results 10/03/19 10/03/19 10/03/19 Range/Units 21:32 21:32 21:32 WBC 15.2 H (4.0-10.0) 10^3/ uL RBC 4.62 (4.1-5.3) 10^6/u L Hgb 12.8 (11.7-16.6) g/dL Hct 40.9 L (42.0-52.0) % MCV 88.5 (80-94) fL MCH 27.7 L (28.0-34.0) pg MCHC 31.3 (30.0-36.0) g/dL RDW 13.8 (12.1-15.1) % Plt Count 473 H (130-400) 10^3/c mm MPV 11.0 H (7.4-10.4) fL Neut % (Auto) 81.4 % Lymph % (Auto) 11.0 % Cottle % (Auto) 5.7 % Eos % (Auto) 0.9 % Baso % (Auto) 0.7 % Neut # (Auto) 12.4 H (1.8-7.7) 10^3/u L Lymph # (Auto) 1.7 (0.8-4.8) 10^3/u L Cottle # (Auto) 0.9 (0.2-0.9) 10^3/u L Eos # (Auto) 0.1 (0.0-0.8) 10^3/u L Baso # (Auto) 0.1 (0.0-0.1) 10^3/u L Nucleated RBC % (a uto) 0 % Nucleated RBCs # 0.0 /100WBC Sodium 138 (136-145) mmol/L Potassium 4.3 (3.5-5.1) mmol/L Chloride 101 (98-107) mmol/L Carbon Dioxide 23 (22-29) mmol/L Anion Gap 18.3 (5-19) BUN 17 (6-20) mg/dL Creatinine 0.8 (0.7-1.2) mg/dL GFR Calculation 99.6 (90-130) mL/min Glucose 130 H (65-115) mg/dL Calcium 9.3 (8.5-10.5) mg/dL Total Bilirubin 0.2 (0.15-1.2) mg/dL AST 74 H (0-40) U/L ALT 73 H (0-41) U/L Alkaline Phosphata se 212 H (40-130) IU/L Troponin T Baselin e 12 (0-15) ng/mL Troponin T 120 Min igiugig (0-15) ng/mL Delta Troponin T (0-10) ABS# Total Protein 8.3 (6.6-8.7) g/dL Albumin 3.9 (3.5-5.2) g/dL Globulin 4.4 (1.3-4.6) g/dL Lipase 62 H (13-60) U/L 10/03/19 Range/Units 23:02 WBC (4.0-10.0) 10^3/ uL RBC (4.1-5.3) 10^6/u L Hgb (11.7-16.6) g/dL Hct (42.0-52.0) % MCV (80-94) fL MCH (28.0-34.0) pg MCHC (30.0-36.0) g/dL RDW (12.1-15.1) % Plt Count (130-400) 10^3/c mm MPV (7.4-10.4) fL Neut % (Auto) % Lymph % (Auto) % Cottle % (Auto) % Eos % (Auto) % Baso % (Auto) % Neut # (Auto) (1.8-7.7) 10^3/u L Lymph # (Auto) (0.8-4.8) 10^3/u L Cottle # (Auto) (0.2-0.9) 10^3/u L Eos # (Auto) (0.0-0.8) 10^3/u L Baso # (Auto) (0.0-0.1) 10^3/u L Nucleated RBC % (a uto) % Nucleated RBCs # /100WBC Sodium (136-145) mmol/L Potassium (3.5-5.1) mmol/L Chloride (98-107) mmol/L Carbon Dioxide (22-29) mmol/L Anion Gap (5-19) BUN (6-20) mg/dL Creatinine (0.7-1.2) mg/dL GFR Calculation (90-130) mL/min Glucose (65-115) mg/dL Calcium (8.5-10.5) mg/dL Total Bilirubin (0.15-1.2) mg/dL AST (0-40) U/L ALT (0-41) U/L Alkaline Phosphata se (40-130) IU/L Troponin T Baselin e (0-15) ng/mL Troponin T 120 Min igiugig 13.56 (0-15) ng/mL Delta Troponin T 1.56 (0-10) ABS# Total Protein (6.6-8.7) g/dL Albumin (3.5-5.2) g/dL Globulin (1.3-4.6) g/dL Lipase (13-60) U/L Imaging Data^: CT Abd/Pel: Radiologist's impression: Ordering Provider/Ordering MD: Elfego Clark MD Date of Service: 10/03/19 Procedure(s): CT abdomen pelvis w con* [id number] Accession Number(s): [id number] Report Number: [id number] PROCEDURE INFORMATION: Exam: CT Abdomen And Pelvis With Contrast Exam date and time: 10/03/2019 9:57 PM Age: 59 years old Clinical indication: Abdominal pain; Localized; Left; Prior surgery; Surgery type: Gb x2 weeks. Abcess drain x1 week; Additional info: Abd pain TECHNIQUE: Imaging protocol: Computed tomography of the abdomen and pelvis with intravenous contrast. Total DLP: 1631.05 mGy-cm Radiation optimization: All CT scans at this facility use at least one of these dose optimization techniques: automated exposure control; mA and/or kV adjustment per patient size (includes targeted exams where dose is matched to clinical indication); or iterative reconstruction. Contrast material: OMNI 300; Contrast volume: 95 ml; Contrast route: IV; COMPARISON: CT abdomen pelvis w con* [id number] 09/13/2019 10:47 PM FINDINGS: Tubes, catheters and devices: Pigtail catheter in the pelvis with a 2.5 cm fluid collection in the pelvis. Lungs: Calcified right lower lobe granuloma. 7 mm right middle lobe ground-glass nodule. Liver: Normal. No mass. Gallbladder and bile ducts: Cholecystectomy with a 6.6 x 2.7 cm air-containing fluid collection in the gallbladder fossa, compatible with an abscess. Pancreas: Normal. No ductal dilation. Spleen: Calcified splenic granulomas. Adrenals: Normal. No mass. Kidneys and ureters: Normal. No hydronephrosis. Stomach and bowel: Gastric bypass without obstruction. Appendix: No evidence of acute appendicitis. Intraperitoneal space: 13 mm fluid collection in the right pericolic gutter, likely a tiny abscess. Vasculature: No abdominal aortic aneurysm. Lymph nodes: No enlarged lymph nodes. Bladder: Unremarkable as visualized. Reproductive: Unremarkable as visualized. Bones/joints: Unremarkable. No acute fracture. Soft tissues: Unremarkable. CT/CT abdomen pelvis w con* [id number] IMPRESSION: 1. Cholecystectomy with a 6.6 x 2.7 cm air-containing fluid collection in the gallbladder fossa, compatible with an abscess. 2. Pigtail catheter in the pelvis with a 2.5 cm fluid collection in the pelvis. 3. 13 mm fluid collection in the right pericolic gutter, likely a tiny abscess. 4. 7 mm right middle lobe ground-glass nodule. Recommend CT Chest at 3-6 months. Subsequent management should be based on the most suspicious nodule(s). MacMahonona H, Fleischner Society, 2017. EKG Data^: EKG 1: EKG interpretation date: 10/03/19 EKG interpretation time: 21:21 Interpretation: Sinus Rhythm Vent rate - 85 bpm ID int - 135ms QRS dur - 89ms Discharge Plan Discharge Patient Disposition: Admitted As Inpatient Clinical Impression: DM type 2 (diabetes mellitus, type 2), Intra-abdominal abscess Condition: Stable Referrals: Abdirahman Tidwell MD [Primary Care Provider] - Coding Level of Care Code [facility] Coordinator for Chg Fwd The documentation recorded by the Bandar pritchett Ashley, accurately reflects the service I personally performed and the decisions made by Amber trejo Korby, MD Oct 03, 2019 20:58
[2019-10-03] MEDS: HYDROmorphone 1 mg/mL INJ 1 mL IVP (21:46)
[2019-10-03] MEDS: ondansetron 2 mg/ML SDV 2 mL 4 MG IVP (21:46)
[2019-10-03 21:52] LABS: Basophils # 0.1 10^3/uL (0.0-0.1); Basophils % 0.7 %; Eosinophils # 0.1 10^3/uL (0.0-0.8); Eosinophils % 0.9 %; Hematocrit 40.9 % (42.0-52.0); Hemoglobin 12.8 g/dL (11.7-16.6); Lymphocytes # 1.7 10^3/uL (0.8-4.8); Mean Corpuscular HGB Conc 31.3 g/dL (30.0-36.0); Mean Corpuscular Hemoglobin 27.7 pg (28.0-34.0); Mean Corpuscular Volume 88.5 fL (80-94); Monocytes # 0.9 10^3/uL (0.2-0.9); Monocytes % 5.7 %; Neutrophils # 12.4 10^3/uL (1.8-7.7); Neutrophils % 81.4 %; Nucleated Red Blood Cells % 0 %; Platelet Count 473 10^3/cmm (130-400); Red Blood Count 4.62 10^6/uL (4.1-5.3); Red Cell Distribution Width 13.8 % (12.1-15.1); White Blood Count 15.2 10^3/uL (4.0-10.0)
--- NOTE | 2019-10-03 21:52 | CTR_ITS ---
PROCEDURE INFORMATION: Exam: CT Abdomen And Pelvis With Contrast Exam date and time: 10/03/2019 9:57 PM Age: 59 years old Clinical indication: Abdominal pain; Localized; Left; Prior surgery; Surgery type: Gb x2 weeks. Abcess drain x1 week; Additional info: Abd pain TECHNIQUE: Imaging protocol: Computed tomography of the abdomen and pelvis with intravenous contrast. Total DLP: 1631.05 mGy-cm Radiation optimization: All CT scans at this facility use at least one of these dose optimization techniques: automated exposure control; mA and/or kV adjustment per patient size (includes targeted exams where dose is matched to clinical indication); or iterative reconstruction. Contrast material: OMNI 300; Contrast volume: 95 ml; Contrast route: IV; COMPARISON: CT abdomen pelvis w con* [id number] 09/13/2019 10:47 PM FINDINGS: Tubes, catheters and devices: Pigtail catheter in the pelvis with a 2.5 cm fluid collection in the pelvis. Lungs: Calcified right lower lobe granuloma. 7 mm right middle lobe ground-glass nodule. Liver: Normal. No mass. Gallbladder and bile ducts: Cholecystectomy with a 6.6 x 2.7 cm air-containing fluid collection in the gallbladder fossa, compatible with an abscess. Pancreas: Normal. No ductal dilation. Spleen: Calcified splenic granulomas. Adrenals: Normal. No mass. Kidneys and ureters: Normal. No hydronephrosis. Stomach and bowel: Gastric bypass without obstruction. Appendix: No evidence of acute appendicitis. Intraperitoneal space: 13 mm fluid collection in the right pericolic gutter, likely a tiny abscess. Vasculature: No abdominal aortic aneurysm. Lymph nodes: No enlarged lymph nodes. Bladder: Unremarkable as visualized. Reproductive: Unremarkable as visualized. Bones/joints: Unremarkable. No acute fracture. Soft tissues: Unremarkable. CT/CT abdomen pelvis w con* [id number] IMPRESSION: 1. Cholecystectomy with a 6.6 x 2.7 cm air-containing fluid collection in the gallbladder fossa, compatible with an abscess. 2. Pigtail catheter in the pelvis with a 2.5 cm fluid collection in the pelvis. 3. 13 mm fluid collection in the right pericolic gutter, likely a tiny abscess. 4. 7 mm right middle lobe ground-glass nodule. Recommend CT Chest at 3-6 months. Subsequent management should be based on the most suspicious nodule(s). Will Decker, Fleischner Society, 2017. Radiation Dose CTDIVOL = (mGy): DLP = 1631.05 (mGy-cm)
[2019-10-03 22:11] LABS: Albumin Level 3.9 g/dL (3.5-5.2); Alkaline Phosphatase 212 IU/L (40-130); Blood Urea Nitrogen 17 mg/dL (6-20); Calcium 9.3 mg/dL (8.5-10.5); Carbon Dioxide 23 mmol/L (22-29); Chloride 101 mmol/L (98-107); Globulin 4.4 g/dL (1.3-4.6); Glomerular Filtration Rate 99.6 mL/min (90-130); Lipase 62 U/L (13-60); Sodium 138 mmol/L (136-145); Total Bilirubin 0.2 mg/dL (0.15-1.2); Total Protein 8.3 g/dL (6.6-8.7)
[2019-10-03] MEDS: iohexol 300 mg/mL 100 mL Btl 95 ML IV (22:17)
[2019-10-03 22:27] LABS: Anion Gap 18.3 (5-19); Potassium 4.3 mmol/L (3.5-5.1)
[2019-10-03 22:33] LABS: Alanine Aminotransferase 73 U/L (0-41); Aspartate Amino Transferase 74 U/L (0-40)
[2019-10-03 22:43] LABS: Troponin(5th) Baseline 12 ng/mL (0-15)
[2019-10-03 23:28] LABS: Troponin 5 2HR 13.56 ng/mL (0-15); Troponin 5 2HR Delta 1.56 ABS# (0-10)
[2019-10-03] MEDS: piperacillin-tazobactam 4.5 GM in sodium chloride 0.9% (plus) 50 ML IV (23:43)
[2019-10-04] VITALS (9 sets, daily range): BP systolic 118–152; BP diastolic 72–85; PULSE 74–93; RESP 13–20; TEMP 20–36.8; O2SAT 91–98
--- NOTE | 2019-10-04 00:19 | W.ED.CHESTPA ---
HPI - Chest Pain General: Chief Complaint: Chest Pain Stated Complaint: CHEST PAIN, LEFT SIDE PAIN Time Seen by Provider: 10/03/19 21:06 Source: patient and family Mode of arrival: wheelchair History of Present Illness: Relieving factors: nothing Exacerbating factors: inspiration and movement Context: recent surgery (gallbladder removal) PFSH ED PFSH: Statuses (acute, chronic, etc) shown below reflect problem list status as previously entered and may not be historically accurate Social History Smoking and tobacco status: never smoked Quit status (tobacco): has quit using tobacco Year quit tobacco: 20 years ago Alcohol intake: former Year of sobriety/quit date alcohol: 20 years ago Lives independently: Yes Household members: spouse Housing: House Current occupational status: disabled History of recent travel: No Course Vital Signs: Vital signs: Vital Signs Temperature 97.8 F 10/03/19 21:01 Pulse Rate 90 10/03/19 23:30 Respiratory Rate 16 10/03/19 23:30 Blood Pressure 130/77 10/03/19 23:30 Pulse Oximetry 96 10/03/19 23:30 MDM - Chest Pain Lab Data: Labs: Lab Results 10/03/19 10/03/19 10/03/19 Range/Units 21:32 21:32 21:32 WBC 15.2 H (4.0-10.0) 10^3/ uL RBC 4.62 (4.1-5.3) 10^6/u L Hgb 12.8 (11.7-16.6) g/dL Hct 40.9 L (42.0-52.0) % MCV 88.5 (80-94) fL MCH 27.7 L (28.0-34.0) pg MCHC 31.3 (30.0-36.0) g/dL RDW 13.8 (12.1-15.1) % Plt Count 473 H (130-400) 10^3/c mm MPV 11.0 H (7.4-10.4) fL Neut % (Auto) 81.4 % Lymph % (Auto) 11.0 % Bonner % (Auto) 5.7 % Eos % (Auto) 0.9 % Baso % (Auto) 0.7 % Neut # (Auto) 12.4 H (1.8-7.7) 10^3/u L Lymph # (Auto) 1.7 (0.8-4.8) 10^3/u L Bonner # (Auto) 0.9 (0.2-0.9) 10^3/u L Eos # (Auto) 0.1 (0.0-0.8) 10^3/u L Baso # (Auto) 0.1 (0.0-0.1) 10^3/u L Nucleated RBC % (a uto) 0 % Nucleated RBCs # 0.0 /100WBC Sodium 138 (136-145) mmol/L Potassium 4.3 (3.5-5.1) mmol/L Chloride 101 (98-107) mmol/L Carbon Dioxide 23 (22-29) mmol/L Anion Gap 18.3 (5-19) BUN 17 (6-20) mg/dL Creatinine 0.8 (0.7-1.2) mg/dL GFR Calculation 99.6 (90-130) mL/min Glucose 130 H (65-115) mg/dL Calcium 9.3 (8.5-10.5) mg/dL Total Bilirubin 0.2 (0.15-1.2) mg/dL AST 74 H (0-40) U/L ALT 73 H (0-41) U/L Alkaline Phosphata se 212 H (40-130) IU/L Troponin T Baselin e 12 (0-15) ng/mL Troponin T 120 Min fermin (0-15) ng/mL Delta Troponin T (0-10) ABS# Total Protein 8.3 (6.6-8.7) g/dL Albumin 3.9 (3.5-5.2) g/dL Globulin 4.4 (1.3-4.6) g/dL Lipase 62 H (13-60) U/L 10/03/19 Range/Units 23:02 WBC (4.0-10.0) 10^3/ uL RBC (4.1-5.3) 10^6/u L Hgb (11.7-16.6) g/dL Hct (42.0-52.0) % MCV (80-94) fL MCH (28.0-34.0) pg MCHC (30.0-36.0) g/dL RDW (12.1-15.1) % Plt Count (130-400) 10^3/c mm MPV (7.4-10.4) fL Neut % (Auto) % Lymph % (Auto) % Bonner % (Auto) % Eos % (Auto) % Baso % (Auto) % Neut # (Auto) (1.8-7.7) 10^3/u L Lymph # (Auto) (0.8-4.8) 10^3/u L Bonner # (Auto) (0.2-0.9) 10^3/u L Eos # (Auto) (0.0-0.8) 10^3/u L Baso # (Auto) (0.0-0.1) 10^3/u L Nucleated RBC % (a uto) % Nucleated RBCs # /100WBC Sodium (136-145) mmol/L Potassium (3.5-5.1) mmol/L Chloride (98-107) mmol/L Carbon Dioxide (22-29) mmol/L Anion Gap (5-19) BUN (6-20) mg/dL Creatinine (0.7-1.2) mg/dL GFR Calculation (90-130) mL/min Glucose (65-115) mg/dL Calcium (8.5-10.5) mg/dL Total Bilirubin (0.15-1.2) mg/dL AST (0-40) U/L ALT (0-41) U/L Alkaline Phosphata se (40-130) IU/L Troponin T Baselin e (0-15) ng/mL Troponin T 120 Min fermin 13.56 (0-15) ng/mL Delta Troponin T 1.56 (0-10) ABS# Total Protein (6.6-8.7) g/dL Albumin (3.5-5.2) g/dL Globulin (1.3-4.6) g/dL Lipase (13-60) U/L Imaging Data^: CT Abd/Pel: Radiologist's impression: [address] [address] [address] Scan Report Signed Patient: Raymond Marley #: [id number] : 2At#:[id number] Age/Sex: 59 / MADM Date: 10/03/19 Loc: ERRoom/Bed: Attending Dr: Ordering Provider/Ordering MD: Elfego Clark MD Date of Service: 10/03/19 Procedure(s): CT abdomen pelvis w con* [id number] Accession Number(s): [id number] Report Number: [id number] PROCEDURE INFORMATION: Exam: CT Abdomen And Pelvis With Contrast Exam date and time: 10/03/2019 9:57 PM Age: 59 years old Clinical indication: Abdominal pain; Localized; Left; Prior surgery; Surgery type: Gb x2 weeks. Abcess drain x1 week; Additional info: Abd pain TECHNIQUE: Imaging protocol: Computed tomography of the abdomen and pelvis with intravenous contrast. Total DLP: 1631.05 mGy-cm Radiation optimization: All CT scans at this facility use at least one of these dose optimization techniques: automated exposure control; mA and/or kV adjustment per patient size (includes targeted exams where dose is matched to clinical indication); or iterative reconstruction. Contrast material: OMNI 300; Contrast volume: 95 ml; Contrast route: IV; COMPARISON: CT abdomen pelvis w con* [id number] 09/13/2019 10:47 PM FINDINGS: Tubes, catheters and devices: Pigtail catheter in the pelvis with a 2.5 cm fluid collection in the pelvis. Lungs: Calcified right lower lobe granuloma. 7 mm right middle lobe ground-glass nodule. Liver: Normal. No mass. Gallbladder and bile ducts: Cholecystectomy with a 6.6 x 2.7 cm air-containing fluid collection in the gallbladder fossa, compatible with an abscess. Pancreas: Normal. No ductal dilation. Spleen: Calcified splenic granulomas. Adrenals: Normal. No mass. Kidneys and ureters: Normal. No hydronephrosis. Stomach and bowel: Gastric bypass without obstruction. Appendix: No evidence of acute appendicitis. Intraperitoneal space: 13 mm fluid collection in the right pericolic gutter, likely a tiny abscess. Vasculature: No abdominal aortic aneurysm. Lymph nodes: No enlarged lymph nodes. Bladder: Unremarkable as visualized. Reproductive: Unremarkable as visualized. Bones/joints: Unremarkable. No acute fracture. Soft tissues: Unremarkable. CT/CT abdomen pelvis w con* [id number] IMPRESSION: 1. Cholecystectomy with a 6.6 x 2.7 cm air-containing fluid collection in the gallbladder fossa, compatible with an abscess. 2. Pigtail catheter in the pelvis with a 2.5 cm fluid collection in the pelvis. 3. 13 mm fluid collection in the right pericolic gutter, likely a tiny abscess. 4. 7 mm right middle lobe ground-glass nodule. Recommend CT Chest at 3-6 months. Subsequent management should be based on the most suspicious nodule(s). Will Decker, Fleischner Society, 2017. Radiation Dose CTDIVOL = (mGy): DLP = 1631.05 (mGy-cm) Dictated By:Gurpreet Mota MD Signed By:Gurpreet Mota MDSigned Date/Time:10/03/19 2390 Discharge Plan Discharge Patient Disposition: Admitted As Inpatient Clinical Impression: DM type 2 (diabetes mellitus, type 2), Intra-abdominal abscess Condition: Stable Referrals: Abdirahman Tidwell MD [Primary Care Provider] - Coding Level of Care Code ED Business Partner for Enrique Oliva
--- NOTE | 2019-10-04 01:00 | PC.NURSE ---
report rec'd from GALLO Trivedi care assumed at this time
--- NOTE | 2019-10-04 01:23 | P.HP_ITS ---
Providers/Chief Complaint Primary Care Provider: Abdirahman Tidwell MD Chief Complaint: INTRA ABDOMINAL ABSCESS History of Present Illness Remy Marley is a 59 year old male with past medical history of type 2 diabetes mellitus, hypertension, hyperlipidemia, history of weight loss after bariatric surgery, recent history of cholecystectomy who presents to the emergency room with his daughter due to complaints of left-sided abdominal pain, left-sided chest pain, left-sided flank pain, sudden onset of shortness of breath. Patient states that after his cholecystectomy, he had a right SOY drain in place, which was subsequently removed from by Dr. Enciso, however a few days later, patient had episodes of abdominal pain, went to [place] [facility] for evaluation, was found to have an abscess between his rectum and his bladder, had a left pigtail catheter placed he was hospitalized for a few days, discharged home, minimal output so far. He has been on antibiotics since his hospital discharge. Patient states that today he met his daughter were driving back from [place], he was driving, when he had a sudden onset of shortness of breath with left-sided abdominal pain, left-sided flank pain, left-sided chest pain, he had to pipe puller to the side of the road, had severe pain. His daughter had to drive the rest of the way. Mild nausea, no vomiting, has regular bowel movements. No lightheadedness, no dizziness. No recent fevers or chills. No hemoptysis. No calf pain no calf swelling. Patient states that he has been a bit immobile after surgery. Review of Systems Const: Denies: fever, chills, fatigue or malaise Eyes: Denies: change in vision or blurry vision ENMT: Denies: nasal congestion Card: Reports: chest pain; Denies: palpitations Resp: Reports: shortness of breath; Denies: productive cough, non-productive cough or wheezing GI: Reports: abdominal pain; Denies: nausea, vomiting, vomiting blood, diarrhea, constipation, blood in stool or black tarry stool : Reports: flank pain; Denies: difficulty urinating, painful urination or urinary frequency Musc: Denies: neck pain or back pain Skin/Breast: Denies: rash Neuro: Denies: headache, dizziness or vertigo Psych: Denies: anxiety or depression Endo: Denies: excessive urination or excessive thirst Medications/Allergies Allergies Allergy/AdvReac Type Severity Reaction Status Date / Time No Known Allergies Allergy Verified 09/29/19 08:15 PFSH Acute PFSH: Statuses (acute, chronic, etc) shown below reflect problem list status as previously entered and may not be historically accurate Medical History (Updated 10/04/19 @ 01:27 by Mihir Kinney MD) DM type 2 (diabetes mellitus, type 2) (Acute) On metformin Encounter for drainage of abscess (Acute) History of drainage of abscess (Acute) Hyperlipidemia (Acute) Hypertension (Acute) Hypertension (Acute) Neuropathy (Acute) Surgical History (Updated 10/04/19 @ 01:27 by Mihir Kinney MD) H/O hernia repair (Acute) History of bariatric surgery (Acute) Approximately 4 years ago History of cholecystectomy (Acute) History of nasal surgery (Acute) Social History Smoking and tobacco status: never smoked Quit status (tobacco): has quit using tobacco Year quit tobacco: 20 years ago Alcohol intake: former Year of sobriety/quit date alcohol: 20 years ago Lives independently: Yes Household members: spouse Housing: House Current occupational status: disabled History of recent travel: No Vitals/I&O/Wt Last Vital Signs Temp 97.8 F 10/03/19 21:01 Pulse 90 10/03/19 23:30 Resp 16 10/03/19 23:30 BP 130/77 10/03/19 23:30 Pulse Ox 96 10/03/19 23:30 Weight last 48 hrs Weight 109.769 kg Physical Exam Const: COMMON NORMALS: no apparent distress and oriented x3 GENERAL APPEARANCE: cooperative and comfortable HENMT: COMMON NORMALS: normocephalic HEAD & SCALP: normocephalic Eye: COMMON NORMALS: PERRL, EOMs intact bilaterally and no papilledema GENERAL EYE: normal appearance of both eyes PUPIL: Yes PERRL DIRECT OPHTHALMOSCOPY: Yes no papilledema Neck/C-Spine: COMMON NORMALS: full ROM, no lymphadenopathy, no JVD and thyroid normal THYROID: thyroid normal Lymph: LYMPHATIC: no lymphadenopathy noted Resp: COMMON NORMALS: normal respiratory effort, no retractions, no use of accessory muscles and clear to auscultation bilaterally AUSCULTATION: clear to auscultation bilaterally Cardio: COMMON NORMALS: no JVD, regular rate, regular rhythm, S1 normal heart sound, S2 normal heart sound, no gallops, no clicks and no murmurs RATE: regular rate RHYTHM: regular rhythm HEART SOUNDS: S1 normal and S2 normal GI: COMMON NORMALS: normal to inspection, nondistended, normoactive bowel sounds and no hepatosplenomegaly INSPECTION: No abdominal distension PALPATION: Yes soft, No firm, Yes tender (Left leg, left side of the chest) Details: LLQ and Yes no hepatosplenomegaly : COMMON NORMALS: Yes no CVA tenderness OTHER: Pigtail catheter emerging from left pelvis Extremity: COMMON NORMALS: normal to inspection, full ROM and no pedal edema Neuro: COMMON NORMALS: oriented x3, CN's II-XII intact bilaterally, moves all extremities and no focal motor deficits Psych: COMMON NORMALS: mental status grossly normal, thought process normal and cooperative THOUGHT PROCESS: normal thought process Data : 10/03/19 21:32 10/03/19 21:32 CT Abd/Pel: Radiologist's impression: COMPARISON: CT abdomen pelvis w con* [id number] 09/13/2019 10:47 PM FINDINGS: Tubes, catheters and devices: Pigtail catheter in the pelvis with a 2.5 cm fluid collection in the pelvis. Lungs: Calcified right lower lobe granuloma. 7 mm right middle lobe ground-glass nodule. Liver: Normal. No mass. Gallbladder and bile ducts: Cholecystectomy with a 6.6 x 2.7 cm air-containing fluid collection in the gallbladder fossa, compatible with an abscess. Pancreas: Normal. No ductal dilation. Spleen: Calcified splenic granulomas. Adrenals: Normal. No mass. Kidneys and ureters: Normal. No hydronephrosis. Stomach and bowel: Gastric bypass without obstruction. Appendix: No evidence of acute appendicitis. Intraperitoneal space: 13 mm fluid collection in the right pericolic gutter, likely a tiny abscess. Vasculature: No abdominal aortic aneurysm. Lymph nodes: No enlarged lymph nodes. Bladder: Unremarkable as visualized. Reproductive: Unremarkable as visualized. Bones/joints: Unremarkable. No acute fracture. Soft tissues: Unremarkable. A&P Assessment and plan (1) Intra-abdominal abscess: -CT abdomen shows cholecystectomy with a 6.6 x 2.7 cm air-containing fluid collection in the gallbladder fossa, compatible with an abscess.13 mm fluid collection in the right pericolic gutter, likely a tiny abscess. Pigtail catheter in the pelvis with a 2.5 cm fluid collection in the pelvis. -Dr. Clark has consulted Dr. Dudley from the ER, will speak to interventional radiology for drainage in the morning -Continue Zosyn -N.p.o. midnight -Gentle hydration Status: Acute Code(s): K65.1 - Peritoneal abscess (2) Left-sided chest pain: -Due to recent surgery, history of immobility, and sudden onset of shortness of breath with left sided abdominal pain, left-sided for the left chest pain -We will do CT Angio of the chest to rule out pulmonary embolism Status: Acute Code(s): R07.9 - Chest pain, unspecified (3) DM type 2 (diabetes mellitus, type 2): -Low-dose sliding scale Status: Acute Code(s): E11.9 - Type 2 diabetes mellitus without complications (4) Hyperlipidemia: Status: Acute Code(s): E78.5 - Hyperlipidemia, unspecified (5) Hypertension: Status: Acute Code(s): I10 - Essential (primary) hypertension (6) Status post cholecystectomy: -Had a right SOY drain removed status post cholecystectomy -Suffered a abscess between his rectum and his bladder, has a pigtail catheter in his left pelvis, has been there for the past 2 weeks, minimal drainage, placed in [facility] Status: Acute Code(s): Z90.49 - Acquired absence of other specified parts of digestive tract Attestations Medical Necessity Statement*: Patient requires hospitalization, outpatient wi th observation, for intra-abdominal abscess status post cholecystectomy Coding Level of Care Code Acute Integrity Engineer for Chg Fwd Diagnoses Intra-abdominal abscess K65.1 Left-sided chest pain R07.9 DM type 2 (diabetes mellitus, type 2) E11.9 Hyperlipidemia E78.5 Hypertension I10 Status post cholecystectomy Z90.49
[2019-10-04 02:12] LABS: C Reactive Protein 4.6 mg/L (0.0-4.9)
--- NOTE | 2019-10-04 03:05 | ECG_ITS ---
Measurements Intervals [place] Rate: 74 P: 54 LA: 152 QRS: 42 QRSD: 109 T: 37 QT: 381 QTc: 424 SINUS RHYTHM No previous ECG available for comparison Electronically Signed On 10-04-2019 9:31:05 CANE PILER by Vahe Galicia M.D. [email or web address]
[2019-10-04 03:12] LABS: Troponin 5 6HR 10.56 ng/L (0-15)
[2019-10-04] MEDS: HYDROcodone-acetaminophen 10-325 mg Tablet 1 TAB PO (03:14)
[2019-10-04 03:20] LABS: Troponin 5 6HR Delta -1.44 ng/L (0-12)
[2019-10-04 03:29] LABS: Glucose Point of Care 125 mg/dL (70-110)
[2019-10-04] MEDS: dextrose 5%-sod chloride 0.45% 1,000 ML 100 ML IV ×2 (04:22→22:55)
[2019-10-04 04:49] LABS: Alanine Aminotransferase 60 U/L (0-41); Albumin Level 3.5 g/dL (3.5-5.2); Alkaline Phosphatase 182 IU/L (40-130); Anion Gap 20.2 (5-19); Aspartate Amino Transferase 52 U/L (0-40); Blood Urea Nitrogen 14 mg/dL (6-20); Calcium 9.3 mg/dL (8.5-10.5); Carbon Dioxide 22 mmol/L (22-29); Chloride 100 mmol/L (98-107); Globulin 4.4 g/dL (1.3-4.6); Glomerular Filtration Rate 138.9 mL/min (90-130); Magnesium 1.6 mg/dL (1.7-2.3); Phosphorus 4.6 mg/dL (2.5-4.5); Potassium 4.2 mmol/L (3.5-5.1); Sodium 138 mmol/L (136-145); Total Bilirubin 0.4 mg/dL (0.15-1.2); Total Protein 7.9 g/dL (6.6-8.7)
[2019-10-04 05:08] LABS: Procalcitonin 0.08 ng/mL (0-0.5)
[2019-10-04] MEDS: acetaminophen 325 mg Tablet 650 MG PO (06:14)
[2019-10-04 06:42] LABS: Glucose Point of Care 125 mg/dL (70-110)
--- NOTE | 2019-10-04 06:56 | PM.PN ---
Subjective Subjective: Interval history: Chief complaint ; patient overall complains of left-sided back and chest wall pain Denies any nausea vomiting fevers or chills or jaundice HPI This is a pleasant 59 years old gentleman well-known to me from previous laparoscopic cholecystectomy that was done before few weeks for a complicated acute cholecystitis and I elected to place a drain in the Morison's pouch patient was discharged on oral antibiotics and few days later he was worked up by his primary care provider as he did not feel well and a repeat CT scan was done over [facility], fluid collection was found in the pelvis consistent with an abscess and a CT-guided drain was placed at an outside hospital, patient later followed up with me at the office and I took out the right upper quadrant drain that I placed in the OR as it had minimal output at that point patient felt better and continued to do well till yesterday when he was going to [place] and he felt worsening pain on the left side of his torso, patient denies any fever chills nausea or vomiting he came to the ER and a CT scan was done of the abdomen and pelvis that showed incidental finding of fluid collection of the gallbladder fossa 6 x 7 cm or so and a pelvic fluid collection that measured 2.5 cm. Patient was admitted to the hospitalist service and I elected to round on the patient today to make sure there is nothing surgical could be done Vitals/I&O/Wt Last Vital Signs Temp 98.2 F 10/04/19 01:46 Pulse 81 10/04/19 04:00 Resp 13 10/04/19 04:00 BP 152/77 10/04/19 04:00 Pulse Ox 91 10/04/19 04:00 10/03/19 10/03/19 10/04/19 14:59 22:59 06:59 Intake Total 120 / 120 Balance 120 / 120 Weight last 48 hrs Weight 213 lb 9.6 oz Weight 242 lb Physical Exam Const: COMMON NORMALS: no apparent distress and oriented x3 GENERAL APPEARANCE: cooperative ORIENTATION/CONSCIOUSNESS: Yes awake, Yes oriented to person, Yes oriented to place and Yes oriented to time HENMT: COMMON NORMALS: normocephalic HEAD & SCALP: normocephalic Eye: COMMON NORMALS: PERRL and no scleral icterus PUPIL: Yes PERRL Chest: COMMONS NORMALS: inspection of chest normal Resp: COMMON NORMALS: normal respiratory effort and clear to auscultation bilaterally AUSCULTATION: clear to auscultation bilaterally Cardio: COMMON NORMALS: S1 normal heart sound and S2 normal heart sound; negative for no murmurs HEART SOUNDS: S1 normal and S2 normal GI: COMMON NORMALS: soft to palpation; negative for no hepatosplenomegaly INSPECTION: Yes normal to inspection PALPATION: Yes soft, No firm, No tender, No guarding, No rigid and No no hepatosplenomegaly Back/Pelvis: GENERAL BACK: Yes other (Tenderness is appreciated on the left side of the torso without evidence of crepitus or fracture rib) Neuro: COMMON NORMALS: oriented x3 SENSORIUM/ORIENTATION: Yes oriented to person, Yes oriented to place and Yes oriented to time Skin: GENERAL SKIN EXAM: other (Left gluteal drain in place with purulent discharge in the tubing) RASHES: other Data : 10/03/19 21:32 10/04/19 02:52 A&P Assessment and plan (1) Left-sided chest pain: After thorough history physical examination and reviewing the chart and images with my personal interpretation, likely the fluid collection noted on the CT scan report is due to a Surgicel piece that I placed at the time of surgery that could simulate an abscess on imaging. With regard to the pelvic drain likely it should come out at some point since it does have a small fluid collection, yet on further evaluation there was purulent discharge and I did flush the tube bedside today and will hold on for now till the patient recovers from the PE and then we can discontinue it at some point if there is not much coming out I will be discussing the case further with the radiologist continue to coordinate with the hospitalist service Assurance and education All questions have been answered and all concerns have been addressed to patient's satisfaction. After further discussion with Dr. Butler radiologist as I did review the CT scan images with her and I made her aware that I did place a large piece of Surgicel intraoperatively back in mid August when I did the gallbladder surgery and she is aware of that and she did confirm to me that there are no evidence of inflammatory wall surrounding the structure that could represent an abscess and she does not feel at this point that this represents an abscess and likely due to the Surgicel in the evidence of no upper abdominal pain particularly on the right side and no evidence of fever chills or nausea or vomiting from surgical standpoint of view I will elect to follow on the patient clinically and have him come back in my office in a week or so for reevaluation. I will defer to the hospitalist service with regard to any potential underlying cardiopulmonary issues The patient is aware of the plan of care I did explain for the patient as long he does not have any constitutional symptoms and the gallbladder fossa fluid collection likely due to Surgicel placed will hold on any interventional radiology percutaneous drainage for now unless the patient started feeling any other constitutional symptoms down the road. We will plan to have the patient follow-up with me in the office this coming Wednesday Status: Acute Code(s): R07.9 - Chest pain, unspecified Attestations Medical Necessity Statement*: Per hospitalist service Time Spent in Patient Care: 16 - 35 minutes (>than 50% of time spent in counselling and/or direct pt care on unit). Coding Level of Care Code Acute Tentering Machine Feeder for Enrique Oliva Exam Problem Focused Diagnoses Left-sided chest pain R07.9
[2019-10-04] MEDS: iohexol 350 mg/mL 100 mL Btl IV (08:55)
[2019-10-04 09:07] LABS: Glucose 130 mg/dL (65-115)
[2019-10-04 09:18] LABS: Glucose 139 mg/dL (65-115)
[2019-10-04] MEDS: piperacillin-tazobactam 3.375 GM in sodium chloride 0.9% (plus) 50 ML IV ×2 (09:28→16:24)
[2019-10-04] MEDS: pregabalin 150 mg Capsule PO ×2 (09:28→20:17)
[2019-10-04] MEDS: atorvastatin 40 mg Tablet 20 MG PO (09:28)
[2019-10-04] MEDS: HYDROcodone-acetaminophen 10-325 mg Tablet PO ×3 (10:00→21:48)
--- NOTE | 2019-10-04 10:48 | PC.CHAP ---
Pastoral Care Encounter/Spiritual Assessment Type of Contact [] Declined rubber heel and sole press tender visit [] Patient/Family/Request visit [] Outpatient visit [] Follow-up visit [] Physician referral [] Code/Alert [x] Routine visit [] Staff referral [] Actively dying [] Patient sleeping [] Family support [] [] Out of room [] Palliative care [] [] Receiving care in room [] Pre-surgical visit [] Trauma [] Long length of stay [] ICU visit [] Other: Relational/Emotional Strength [x] Patient feels connected with others/family/visitors/staff [] Distress [] Loneliness/isolation [] Abandonment Spirituality of Patient [x] Person of Anamika [x] Attends Jain of their Anamika [x] Believes in Prayer [] Reads Bible or Sabianist materials [] There are Spiritual issues to be addressed Delivery Aide Interventions [x] Prayer [] Active listening [] Non-anxious presence [] Spiritual/emotional support [] Crisis/trauma care [] Spiritual counseling [] Bereavement support [] Provided bereavement packet [] Provided Bible/devotional materials [] Provided toy/stuffed animal, coloring book to patient or family member [] Provided Communion [] Anointing/[place] [] Salvation [x] Completed spiritual assessment [] Other: Impact on Illness or Injury [] Angry [] Fearful [] Anxious [] Often cries [] Exhaustion [] Unable to work [] Unable to attend adventism [] Unable to walk/stand [] Unable to read [] Unable to drive [] Unable to eat/drink [] Unable to sleep [] Unable to be with family [] Patient intubated [x] Other: patient asking about resuscitation and power of research attorney forms ..... Summary patient and seem confident of all care being given. Time spent with patient 15 min
[2019-10-04] MEDS: enoxaparin 100 mg/mL Syringe SUBCUT ×2 (10:57→21:13)
[2019-10-04] MEDS: tamsulosin 0.4 mg Capsule PO (10:58)
--- NOTE | 2019-10-04 11:18 | PM.PN ---
Subjective Subjective: Interval history: Patient continues to have pleuritic left lower chest pain that started couple days ago when he was driving. He had multilobar pulmonary emboli without right heart strain or evidence of pneumonia.. He has complex collection in the gallbladder fossa which was evaluated by Dr. Washington with no further intervention at this point. Vitals/I&O/Wt Last Vital Signs Temp 97.4 F L 10/04/19 11:04 Pulse 83 10/04/19 11:04 Resp 20 H 10/04/19 11:04 BP 119/75 10/04/19 11:04 Pulse Ox 97 10/04/19 11:04 10/03/19 10/04/19 10/04/19 22:59 06:59 14:59 Intake Total 120 / 120 Balance 120 / 120 Weight last 48 hrs Weight 96.887 kg Weight 109.769 kg Physical Exam Const: COMMON NORMALS: no apparent distress and oriented x3 Resp: COMMON NORMALS: normal respiratory effort and clear to auscultation bilaterally AUSCULTATION: clear to auscultation bilaterally Cardio: COMMON NORMALS: regular rate, regular rhythm and S2 normal heart sound RATE: regular rate RHYTHM: regular rhythm HEART SOUNDS: S2 normal OTHER: No lower extremity edema GI: COMMON NORMALS: normal to inspection, nondistended, normoactive bowel sounds and soft to palpation; negative for non-tender PALPATION: Yes soft Neuro: COMMON NORMALS: oriented x3 and no focal motor deficits Data : 10/03/19 21:32 10/04/19 02:52 A&P Assessment and plan (1) Intra-abdominal abscess: -CT abdomen shows cholecystectomy with a 6.6 x 2.7 cm air-containing fluid collection in the gallbladder fossa, compatible with an abscess.13 mm fluid collection in the right pericolic gutter, likely a tiny abscess. Pigtail catheter in the pelvis with a 2.5 cm fluid collection in the pelvis. -Dr. Clark has consulted Dr. Dudley from the ER, will speak to interventional radiology for drainage in the morning -Continue Zosyn -N.p.o. midnight -Gentle hydration Status: Acute Code(s): K65.1 - Peritoneal abscess (2) Left-sided chest pain: -Due to recent surgery, history of immobility, and sudden onset of shortness of breath with left sided abdominal pain, left-sided for the left chest pain -We will do CT Angio of the chest to rule out pulmonary embolism Status: Acute Code(s): R07.9 - Chest pain, unspecified (3) DM type 2 (diabetes mellitus, type 2): -Low-dose sliding scale Status: Acute Code(s): E11.9 - Type 2 diabetes mellitus without complications (4) Hyperlipidemia: Status: Acute Code(s): E78.5 - Hyperlipidemia, unspecified (5) Hypertension: Status: Acute Code(s): I10 - Essential (primary) hypertension (6) Status post cholecystectomy: -Had a right SOY drain removed status post cholecystectomy -Suffered a abscess between his rectum and his bladder, has a pigtail catheter in his left pelvis, has been there for the past 2 weeks, minimal drainage, placed in [place] Status: Acute Code(s): Z90.49 - Acquired absence of other specified parts of digestive tract Additional A&P Information Dr. Duldey is okay to anticoagulate from surgical standpoint. Patient was started on therapeutic Lovenox. If chest pain improves consider transitioning to oral anticoagulant. Attestations Medical Necessity Statement*: Patient with PE requires close inpatient monitoring and treatment. Time Spent in Patient Care: 16 - 35 minutes Coding Level of Care Code Acute Deskidding Machine Operator for g Fwd Diagnoses Intra-abdominal abscess K65.1 Left-sided chest pain R07.9 DM type 2 (diabetes mellitus, type 2) E11.9 Hyperlipidemia E78.5 Hypertension I10 Status post cholecystectomy Z90.49
[2019-10-04 11:28] LABS: Glucose Point of Care 252 mg/dL (70-110)
--- NOTE | 2019-10-04 12:30 | CT_ITS ---
WS: [id number] CT CHEST ANGIOGRAPHY WITH REFORMATS HISTORY: sob, flank pain TECHNIQUE: Contiguous axial images are obtained through the chest during arterial injection of intrav enous contrast. Images are reconstructed to evaluate the pulmonary arteries. MIP imaging also reviewe d. All CT scans at [facility] use at least one of these dose optimization techniques: aut omated exposure control; mA and/or kV adjustment per patient size (includes targeted exams where dose is matched to clinical indication); or iterative reconstruction. CONTRAST: Omnipaque 350; 95 mL IV. DLP: 584.46 mGy.cm COMPARISON: 10/03/2019 and 09/13/2019 CT abdomen and pelvis. Good injection of the pulmonary arteries. There is no central pulmonary emboli. The main pulmonary em boli in the RIGHT and LEFT lobe arteries are free of embolic disease. Beginning within the segmental and then within the subsegmental branches are numerous defects. The most significant involvement is i n the LEFT upper lobe pulmonary artery. There is occlusive and nonocclusive emboli in the LEFT upper lower lobes bilaterally. Pulmonary artery size is normal. No RIGHT heart strain at this time. No pericardial or pleural effusi on. Mediastinal and hilar lymph nodes are slightly enlarged. Probably reactive. The largest lymph nod e is 12 mm at the RIGHT hilum. RIGHT middle lobe ill-defined opacification measures 9.5 mm. Benign gr anuloma RIGHT lower lobe. Left-sided gynecomastia. Patient is recently status post cholecystectomy. There is a complex collection in containing air at t he gallbladder fossa. Probably representing surgery cell deposition from the recent surgery. There is no adjacent inflammation or fluid. Incompletely visualized. Mild spondylitic changes in the spine. N o osseous abnormalities. Notified Mihir Kinney MD at 10/04/2019 9:06 AM. Not available. Reported case to actually, patient's nurse at this time. CT/CT angio chest PE protcl [id number] IMPRESSION: 1. Multi lobar segmental and subsegmental embolic disease. 2. No RIGHT heart strain or pneumonia. 3. No pericardial or pleural effusion. 4. Complex collection at the gallbladder fossa. Patient had recent surgery thi s is probably related to Surgicel deposition. Incompletely visualized and absce ss not completely excluded. Correlate with presenting symptomatology.
[2019-10-04 16:41] LABS: Glucose Point of Care 88 mg/dL (70-110)
--- NOTE | 2019-10-04 16:57 | PC.NURSE ---
patient having sever pain in right lower ribs hydrocodone given at this time however patient is afraid it will not work fast enough would like something to take the edge off attempted to contact Dr. snow for further pain management orders unable to reach the doctor after contacting through text and attempted phone call
--- NOTE | 2019-10-04 17:48 | PC.NURSE ---
new orders received from doctor snow at this time morphine 2 mg IVP x1
--- NOTE | 2019-10-04 18:30 | PC.NURSE ---
upon obtaining order and the proper verifications processed patients pain had decreased to a tolerable level and patient did not want to take the morphine at this time requested it to be given at bed time retimed the one time order for 2100
--- NOTE | 2019-10-04 19:00 | PC.NURSE ---
Dr. Dudley contacted with concerns of buttocks drain having little to no out put no new orders was given however he wanted to ensure that nurse staff new to only flush one time daily with normal saline 5 to 10 mls and draw back all fluid
[2019-10-04 20:44] LABS: Glucose Point of Care 194 mg/dL (70-110)
--- NOTE | 2019-10-04 21:00 | PC.NURSE ---
Morphine 2mg IVP given at this time per patient request. Rating pain at 9/10. Will monitor.
[2019-10-04] MEDS: morphine 4 mg/mL SDV 1 mL 2 MG IVP (21:09)
--- NOTE | 2019-10-04 21:30 | PC.NURSE ---
Patient lying supine in bed talking on telephone. States that pain is at 7/10. Would like my pain pills now. Hydrocodone's given per patient request. Will monitor.
[2019-10-05] MEDS: piperacillin-tazobactam 3.375 GM in sodium chloride 0.9% (plus) 50 ML IV ×2 (00:10→09:27)
--- NOTE | 2019-10-05 00:21 | PC.NURSE ---
Lying supine in bed. Spouse asleep at bedside. Respirations even and unlabored. Will monitor.
[2019-10-05] MEDS: acetaminophen 325 mg Tablet 650 MG PO (01:22)
--- NOTE | 2019-10-05 01:24 | PC.NURSE ---
Sitting on side of bed. I just need some Tylenol for right now.....I woke up hurting a little bit. Tylenol given as requested. Will monitor.
[2019-10-05] MEDS: HYDROcodone-acetaminophen 10-325 mg Tablet PO (03:20)
[2019-10-05 03:47] LABS: Basophils # 0.1 10^3/uL (0.0-0.1); Basophils % 0.8 %; Eosinophils # 0.2 10^3/uL (0.0-0.8); Eosinophils % 2.6 %; Hematocrit 33.9 % (42.0-52.0); Hemoglobin 10.9 g/dL (11.7-16.6); Lymphocytes # 1.5 10^3/uL (0.8-4.8); Lymphocytes % 19.6 %; Mean Corpuscular HGB Conc 32.2 g/dL (30.0-36.0); Mean Corpuscular Hemoglobin 27.1 pg (28.0-34.0); Mean Corpuscular Volume 84.3 fL (80-94); Mean Platelet Volume 11.2 fL (7.4-10.4); Monocytes # 0.7 10^3/uL (0.2-0.9); Monocytes % 9.5 %; Neutrophils # 5.2 10^3/uL (1.8-7.7); Neutrophils % 67.4 %; Nucleated Red Blood Cells % 0 %; Platelet Count 343 10^3/cmm (130-400); Red Blood Count 4.02 10^6/uL (4.1-5.3); Red Cell Distribution Width 13.5 % (12.1-15.1); White Blood Count 7.8 10^3/uL (4.0-10.0)
[2019-10-05 04:00] VITALS: BP 109/74; PULSE 74; RESP 15; TEMP 37
[2019-10-05 04:07] LABS: Alanine Aminotransferase 36 U/L (0-41); Albumin Level 3.2 g/dL (3.5-5.2); Alkaline Phosphatase 141 IU/L (40-130); Anion Gap 14.8 (5-19); Aspartate Amino Transferase 23 U/L (0-40); Blood Urea Nitrogen 10 mg/dL (6-20); Calcium 8.8 mg/dL (8.5-10.5); Carbon Dioxide 25 mmol/L (22-29); Chloride 100 mmol/L (98-107); Glomerular Filtration Rate 171.4 mL/min (90-130); Glucose 125 mg/dL (65-115); Magnesium 1.6 mg/dL (1.7-2.3); Phosphorus 4.2 mg/dL (2.5-4.5); Potassium 3.8 mmol/L (3.5-5.1); Sodium 136 mmol/L (136-145); Total Bilirubin 0.3 mg/dL (0.15-1.2); Total Protein 6.2 g/dL (6.6-8.7)
--- NOTE | 2019-10-05 06:19 | PC.NURSE ---
Lying supine in bed. Accu check performed with result of 143mg/dl. That's not bad....I had Sprite and pudding before I went to sleep last night. Requesting Tylenol. This nurse explained to patient about the maximum of Tylenol in a 24 hour period and that when this nurse scanned his hydrocodone, computer stated that patient only had 100mg left of Tylenol that he could have. Patient then asked this nurse if I could look up and see how long it had been. This nurse told patient that I would. Will monitor.
[2019-10-05 06:31] LABS: Glucose Point of Care 143 mg/dL (70-110)
[2019-10-05 07:15] VITALS: BP 134/86; PULSE 74; RESP 22; O2SAT 97
--- NOTE | 2019-10-05 08:59 | P.PN_ITS ---
Subjective Subjective: Interval history: Patient was found to have PE and was placed on therapeutic Lovenox The case has been discussed with the radiologist with regard to the gallbladder fossa collection and appears to be more of a Surgicel and postoperative changes rather than an actual abscess cavity, WBC count normalized Left gluteal drain in place without complications and being flushed by me yesterday in the nursing staff. Patient overall is feeling better and tolerating well p.o. intake yet he continues to complain of left-sided chest wall pain and tenderness clinically it may present costochondritis Vitals/I&O/Wt Last Vital Signs Temp 98.6 F 10/05/19 04:00 Pulse 74 10/05/19 07:15 Resp 22 H 10/05/19 07:15 BP 134/86 10/05/19 07:15 Pulse Ox 97 10/05/19 07:15 10/04/19 10/05/19 10/05/19 22:59 06:59 14:59 Intake Total 770 / 1450 360 / 1810 50 / 50 Balance 770 / 1450 360 / 1810 50 / 50 Weight last 48 hrs Weight 213 lb 9.6 oz Weight 242 lb Physical Exam Const: COMMON NORMALS: no apparent distress and oriented x3 GENERAL APPEARANCE: cooperative ORIENTATION/CONSCIOUSNESS: Yes awake, Yes oriented to person, Yes oriented to place and Yes oriented to time Eye: COMMON NORMALS: PERRL and no scleral icterus PUPIL: Yes PERRL Chest: CHEST: Yes localized rib tenderness with anteroposterior compression (Mostly located on the left side of chest wall) GI: COMMON NORMALS: soft to palpation; negative for no hepatosplenomegaly INSPECTION: Yes normal to inspection PALPATION: Yes soft, No firm, No tender, No guarding, No rigid and No no hepatosplenomegaly Neuro: COMMON NORMALS: oriented x3 SENSORIUM/ORIENTATION: Yes oriented to person, Yes oriented to place and Yes oriented to time Data : 10/05/19 03:08 10/05/19 03:08 A&P Assessment and plan (1) Status post cholecystectomy: From surgical standpoint of view patient can be discharged home on empiric antibiotics particularly to cover potential gram negatives and anaerobes. We will have the patient come back this coming Wednesday at the surgery office Drain care and teaching Ice pack application on the left chest wall Anticoagulation per hospitalist service Status: Acute Code(s): Z90.49 - Acquired absence of other specified parts of digestive tract Attestations Medical Necessity Statement*: Per hospitalist Time Spent in Patient Care: less than 15 minutes (>than 50% of time spent in counselling and/or direct pt care on unit) . Coding Level of Care Code Acute Talent Development Director for Chg Fwd Diagnoses Status post cholecystectomy Z90.49
[2019-10-05] MEDS: pregabalin 150 mg Capsule PO (09:23)
[2019-10-05] MEDS: apixaban 5 mg Tablet 10 MG PO (09:24)
[2019-10-05] MEDS: tamsulosin 0.4 mg Capsule PO (09:24)
[2019-10-05] MEDS: atorvastatin 40 mg Tablet 20 MG PO (09:24)
[2019-10-05] MEDS: HYDROcodone-acetaminophen 10-325 mg Tablet 1 TAB PO (09:25)
[2019-10-05 09:40] VITALS: O2SAT 97; O2SAT 98
[2019-10-05 09:41] VITALS: O2SAT 97
--- NOTE | 2019-10-05 10:01 | P.DS_ITS ---
Discharge Providers Date of Admission: 10/03/19 23:29 Date of Discharge: Date of Discharge: October 05, 2019 Attending Provider at Admission: Mihir Kinney MD Attending Provider at Discharge: David Flores MD Primary Care Provider: Abdirahman Tidwell MD Diagnoses at Discharge Discharge Diagnosis (1) Status post cholecystectomy: Status: Acute (2) Intra-abdominal abscess: Status: Acute (3) Hypertension: Status: Acute (4) DM type 2 (diabetes mellitus, type 2): Status: Acute Problem details: On metformin Reason for Visit Reason for Visit: Reason For Visit: INTRA ABDOMINAL ABSCESS Hospital Course Discharge Summary: Remy Marley is a 59 year old male with past medical history of type 2 diabetes mellitus, hypertension, hyperlipidemia, history of weight loss after bariatric surgery, recent history of cholecystectomy who presented to the emergency room on with his daughter due to complaints of left- sided abdominal pain, left-sided chest pain, left-sided flank pain, sudden onset of shortness of breath. Patient states that after his cholecystectomy, he had a right SOY drain in place, which was subsequently removed from by Dr. Enciso in his office, however a few days later, patient had episodes of abdominal pain, so went to [place] for evaluation, was found to have an abscess between his rectum and his bladder, had a left pigtail catheter placed he was hospitalized for a few days, discharged home, minimal output so far. He has been on levoflox and flagyl orally since his hospital discharge. In ER CT abdomen shows cholecystectomy with a 6.6 x 2.7 cm air-containing fluid collection in the gallbladder fossa, compatible with an abscess and 0.13 mm fluid collection in the right pericolic gutter, likely a tiny abscess. Pigtail catheter in the pelvis with a 2.5 cm fluid collection in the pelvis. CTA chest was done which showed multi lobar segmental and subsegmental embolic disease. He was started on full dose lovenox for PE. HE responded well to treatment and was saturating more than 92% on room air so was transitioned over to Eliquis. For intrabdominal abscess Dr. Washington was consulted and it was deemed that gall bladder fossa collection is more likely Surgicel which he had placed in OR one week ago during laproscopic cholecystectomy. His pelvic drain was clogged and so was flushed after which it started draining well though drain was minimal. He was started on broad spectrum Abx. Fresh blood and fluid cultures were send. He responded well to treatment and is being discharged on oral antibiotics as per cultures fro OR from 1 week ago. He is to follow up with Dr. Washington on Wednesday for pelvic drain assessment and has been adviced to get repeat CT scan in next 1-2 weeks to decide the span on Abx course. Physical Exam Const: COMMON NORMALS: no apparent distress, oriented x3 and healthy appearing GENERAL APPEARANCE: cooperative and comfortable ORIENTATION/CONSCIOUSNESS: Yes awake, Yes oriented to person, Yes oriented to place and Yes oriented to time HENMT: COMMON NORMALS: normocephalic and head/scalp atraumatic HEAD & SCALP: normocephalic and atraumatic Eye: COMMON NORMALS: PERRL, EOMs intact bilaterally, no scleral icterus and no papilledema GENERAL EYE: normal appearance of both eyes PUPIL: Yes PERRL DIRECT OPHTHALMOSCOPY: Yes no papilledema Neck/C-Spine: COMMON NORMALS: full ROM, no lymphadenopathy, supple, no JVD and thyroid normal THYROID: thyroid normal Lymph: LYMPHATIC: no lymphadenopathy noted Chest: COMMONS NORMALS: inspection of chest normal and palpation of chest normal CHEST: Yes localized rib tenderness with anteroposterior compression (Mostly located on the left side of chest wall) Resp: COMMON NORMALS: normal respiratory effort, no retractions, no use of accessory muscles and clear to auscultation bilaterally AUSCULTATION: clear to auscultation bilaterally Cardio: COMMON NORMALS: no JVD, regular rate, regular rhythm, S1 normal heart sound, S2 normal heart sound, no gallops and no clicks; negative for no murmurs RATE: regular rate RHYTHM: regular rhythm HEART SOUNDS: S1 normal and S2 normal OTHER: No lower extremity edema GI: COMMON NORMALS: normal to inspection, nondistended, normoactive bowel sounds, soft to palpation and no masses; negative for non-tender and negative for no hepatosplenomegaly INSPECTION: Yes normal to inspection and No abdominal distension PALPATION: Yes soft, No firm, No tender, No guarding, No rigid and No no hepatosplenomegaly : COMMON NORMALS: Yes no CVA tenderness BLADDER/KIDNEY EXAM: Yes no CVA tenderness OTHER: Pigtail catheter emerging from left pelvis Back/Pelvis: COMMON NORMALS: no CVA tenderness GENERAL BACK: Yes other (Tenderness is appreciated on the left side of the torso without evidence of crepitus or fracture rib) Extremity: COMMON NORMALS: normal to inspection, full ROM and no pedal edema Neuro: COMMON NORMALS: oriented x3, CN's II-XII intact bilaterally, moves all extremities and no focal motor deficits SENSORIUM/ORIENTATION: Yes oriented to person, Yes oriented to place and Yes oriented to time Psych: COMMON NORMALS: mental status grossly normal, thought process normal and cooperative THOUGHT PROCESS: normal thought process Skin: COMMON NORMALS: no rashes or lesions noted and no wounds GENERAL SKIN EXAM: no rashes or lesions noted and other (Left gluteal drain in place with purulent discharge in the tubing) RASHES: other Discharge Data Data Completed and Pending: Completed Studies During Hospitalization Category Date Time Status CT abdomen pelvis w con* [id number] Urge nt Cat Scan 10/03/19 21:[address] angio chest PE protcl [id number] Rout ine Cat Scan 10/04/19 12:30 Completed XR chest 1V osei ble [id number] Stat Exams 10/03/19 21:05 Completed Pending at discharge Category Date Time Status Blood Culture Sta t Lab 10/05/19 08:07 Ordered Body Fluid Cultur e & GS Stat Lab 10/05/19 09:10 Received Complete Blood Co unt w/Auto AM LABS Lab 10/06/19 04:00 Ordered Complete Blood Co unt w/Auto AM LABS Lab 10/07/19 04:00 Ordered Comprehensive Met abolic Panel AM LA BS Lab 10/06/19 04:00 Ordered MRSA by PCR [place] ne Lab 10/05/19 09:48 Ordered Magnesium AM LABS Lab 10/06/19 04:00 Ordered Phosphorus AM LAB S Lab 10/06/19 04:00 Ordered Procalcitonin AM LABS Lab 10/06/19 04:00 Ordered Labs from last 24 hours 10/05/19 10/05/19 10/05/19 06:10 03:08 03:08 WBC RBC Hgb Hct MCV MCH MCHC RDW Plt Count MPV Neut % (Auto) Lymph % (Auto) [place] % (Auto) Eos % (Auto) Baso % (Auto) Neut # (Auto) Lymph # (Auto) [place] # (Auto) Eos # (Auto) Baso # (Auto) Nucleated RBC % (a uto) Nucleated RBCs # Sodium 136 Potassium 3.8 Chloride 100 Carbon Dioxide 25 Anion Gap 14.8 BUN 10 Creatinine 0.5 L GFR Calculation 171.4 H Glucose 125 H POC Glucose 143 Calcium 8.8 Phosphorus 4.2 Magnesium 1.6 L Total Bilirubin 0.3 AST 23 ALT 36 Alkaline Phosphata se 141 H Total Protein 6.2 L Albumin 3.2 L Globulin 3.0 Procalcitonin 0.10 10/05/19 10/04/19 10/04/19 03:08 20:29 16:29 WBC 7.8 RBC 4.02 L Hgb 10.9 L Hct 33.9 L MCV 84.3 MCH 27.1 L MCHC 32.2 RDW 13.5 Plt Count 343 MPV 11.2 H Neut % (Auto) 67.4 Lymph % (Auto) 19.6 [place] % (Auto) 9.5 Eos % (Auto) 2.6 Baso % (Auto) 0.8 Neut # (Auto) 5.2 Lymph # (Auto) 1.5 [place] # (Auto) 0.7 Eos # (Auto) 0.2 Baso # (Auto) 0.1 Nucleated RBC % (a uto) 0 Nucleated RBCs # 0.0 Sodium Potassium Chloride Carbon Dioxide Anion Gap BUN Creatinine GFR Calculation Glucose POC Glucose 194 88 Calcium Phosphorus Magnesium Total Bilirubin AST ALT Alkaline Phosphata se Total Protein Albumin Globulin Procalcitonin 10/04/19 11:02 WBC RBC Hgb Hct MCV MCH MCHC RDW Plt Count MPV Neut % (Auto) Lymph % (Auto) [place] % (Auto) Eos % (Auto) Baso % (Auto) Neut # (Auto) Lymph # (Auto) [place] # (Auto) Eos # (Auto) Baso # (Auto) Nucleated RBC % (a uto) Nucleated RBCs # Sodium Potassium Chloride Carbon Dioxide Anion Gap BUN Creatinine GFR Calculation Glucose POC Glucose 252 Calcium Phosphorus Magnesium Total Bilirubin AST ALT Alkaline Phosphata se Total Protein Albumin Globulin Procalcitonin Vitals: Last Vital Signs Temp 98.6 F 10/05/19 04:00 Pulse 74 10/05/19 07:15 Resp 22 H 10/05/19 07:15 BP 134/86 10/05/19 07:15 Pulse Ox 97 10/05/19 09:41 Discharge Plan Discharge Patient Disposition: Home, Self-Care Condition: Stable Prescriptions: New Eliquis DVT-PE Treat 30D Start 5 mg (74 tabs) tablets,dose pack See Rx Instructions .ROUTE .COMPLEX Qty: 74 RF: 0 ciprofloxacin HCl 500 mg tablet 500 mg PO Q12H 10 Days Qty: 20 RF: 0 Flagyl 500 mg tablet 500 mg PO Q8H 10 Days Qty: 30 RF: 0 Continued hydrocodone-acetaminophen 10-325 mg tablet 1 - 2 tab PO Q4H PRN (Reason: Pain) RF: 0 lovastatin 20 mg tablet 1 mg PO DAILY RF: 0 pregabalin [Lyrica] 150 mg capsule 1 mg PO BID RF: 0 metformin 850 mg tablet 1 mg PO DAILY RF: 0 tamsulosin 0.4 mg capsule 1 mg PO DAILY RF: 0 triamcinolone acetonide 0.1 % cream 1 applic TOPICAL PRN PRN (Reason: Rash) RF: 0 Discharge Orders: Discharge Order (Routine); Ordered 10/05/19 Ordered By: David Flores Referrals: Antonio Dudley MD [Physician] - 1 week (You have a surgery followup with Dr. Dudley at [facility] Operator office on October 09 at 8:45am. Any questions or appointment changes, please call them at [phone]) Abdirahman Tidwell MD [Primary Care Provider] - (Your appointment with Dr. Tidwell at [facility] has been changed from Wednesday to October 10 at 2:30pm for a hospital followup. Any questions or appointment changes, please call them at [phone]) Discharge Diet: Diabetic Discharge Activity: Resume usual activity Patient Instructions: Type 2 Diabetes, Ciprofloxacin (By mouth), Metronidazole (By mouth), Apixaban (By mouth), Abscess (GEN) Activity Restrictions/Additional Instructions: Repeat CT in 2 weeks and span of Abx course to be decided as per CT results Discharge Date/Time: 10/05/19 12:10 Discharge Attestations Time Spent in Discharge Care*: greater than 30 min Specific Discharge Activities: Specific discharge activities: educating patient and discussing with pcp/other providers Status at Discharge: Cognitive status at discharge: cognitively intact , Behavioral status at discharge: cooperative , Functional status at discharge: independent ambulation Overall status at discharge: patient is back to baseline Quality Metrics Clinical Quality Measures During this hospital stay, did patient experience: None Coding Level of Care Code Acute Extractor Loader And Unloader for Chg Fwd Diagnoses Status post cholecystectomy Z90.49 Intra-abdominal abscess K65.1 Hypertension I10 DM type 2 (diabetes mellitus, type 2) E11.9
[2019-10-05 11:33] VITALS: BP 134/86; PULSE 82; RESP 16; O2SAT 97
--- NOTE | 2019-10-05 12:44 | PC.NURSE ---
PATIENT GIVEN DISCHARGE INSTRUCTIONS AND VERBALIZED UNDERSTANDING ; IV REMOVED AND PRESSURE DRESSING APPLIED WITH NO BLEEDING NOTED ; VSS ; PATIENT DENIES ANY ADDITIONAL PAIN OTHER THAN DRAIN SITE ; DRAIN DRESSING C/D/I ; PATIENT TO EXIT VIA WHEELCHAIR TO POV WITH NO ISSUES
--- NOTE | 2019-10-05 13:26 | PC.NURSE ---
[facility] CALLED IN TO [facility]
== END 2019-10-05 12:10 | disposition home or self-care (01) ==
LOC: ER 10-04 01:27 → CSU 10-04 07:13
PROVIDERS: Internal Medicine; Admitting Provider Family Medicine; Emergency Provider Emergency Medicine; PCP Family Medicine Geriatric Medicine; Visit Provider Student in an Organized Health Care Education/Training Program
DX: K65.1 Peritoneal abscess (principal); R07.9 Chest pain, unspecified; E78.5 Hyperlipidemia, unspecified; I10 Essential (primary) hypertension; Z90.49 Acquired absence of other specified parts of digestive tract; Z98.84 Bariatric surgery status; E11.40 Type 2 diabetes mellitus with diabetic neuropathy, unspecified
CPT/HCPCS: 12345; 36415; 36416; 71045; 71275; 73221; 74177; 80053; 82962; 83690; 83735; 84100; 84145; 84484; 85025; 86140; 87040; 87070; 87075; 87205; 87641; 93005; 96361; 96365; 96372; 96375; 99283; 99285; G0378; J1170; J1650; J1815; J2270; J2405; J2543; J7799; Q9967

== ENCOUNTER 2024-09-30 07:08 | Emergency (ER) | payer MEDICARE, SELFPAY ==
[2024-09-30 07:17] VITALS: BP 134/70; PULSE 65; RESP 18; TEMP 36.4; O2SAT 98
--- NOTE | 2024-09-30 07:58 | ED_ITS ---
HPI - Back Pain/Injury 2 General: Chief Complaint: Back Pain/Injury Stated Complaint: right side lower back pain Time Seen by Provider: 09/30/24 07:56 History of Present Illness: Patient presents with progressively worsening right-sided back/flank pain that began on Wednesday. The pain started as mild but gradually intensified, becoming severe last night. Pain radiates down the right leg to the anterio thigh, not extending past the knee. Associated symptoms include right leg weakness and numbness. Patient reports difficulty walking and straightening the leg. Pain is described as severe (9/10). Patient denies any recent trauma or injury. Patient has a history of chronic left-sided back pain from a previous injury 18 years ago when he fell on a ball-peen hammer, but states current symptoms are distinctly different. Patient took Tylenol without relief. No loss of bowel or bladder control. Constitutional: Reports severe pain, denies fever Musculoskeletal: Right-sided back pain, leg weakness, limited mobility Neurological: Right leg numbness and weakness, pain radiation Genitourinary: Chronic urinary symptoms, denies hematuria All other systems negative or not reviewed Related Data Home Medications Medication Instructions Recorded Confirmed hydrocodone 10 mg-acetaminophen 1 - 2 tab PO Q4H PRN Pain 09/14/19 09/30/24 325 mg tablet metformin 850 mg tablet 1 mg PO DAILY 09/14/19 09/30/24 pregabalin 150 mg capsule (Lyrica) 1 mg PO BID 09/14/19 09/30/24 acetaminophen 325 mg tablet 650 mg PO QID PRN Fever Or Pain 09/30/24 09/30/24 (Tylenol) clobetasol 0.05 % topical cream 1 applic topical BID 09/30/24 09/30/24 diclofenac sodium 1 % topical gel 2 g topical QID 09/30/24 09/30/24 tamsulosin 0.4 mg capsule 0.8 mg PO DAILY 09/30/24 09/30/24 Previous Rx's Medication Instructions Recorded cyclobenzaprine 10 mg tablet 10 mg PO Q8H #30 tabs 09/30/24 hydrocodone 10 mg-acetaminophen 1 tab PO Q6H PRN pain #14 tabs 09/30/24 325 mg tablet prednisone 50 mg tablet 50 mg PO DAILY 7 days #7 tabs 09/30/24 Allergies Allergy/AdvReac Type Severity Reaction Status Date / Time No Known Allergies Allergy Verified 10/18/19 14:59 PFSH ED 2 PFSH: Medical History (Updated 09/30/24 @ 10:12 by Kinga Smiley MD) Hyperlipidemia Hypertension History of drainage of abscess Encounter for drainage of abscess Neuropathy Hypertension DM type 2 (diabetes mellitus, type 2) On metformin Surgical History History of cholecystectomy History of nasal surgery H/O hernia repair History of bariatric surgery Approximately 4 years ago Family History Father CAD (coronary artery disease) Brother Diabetes Mother Anesthesia complication Denies family history of Bleeding disorder Social History Smoking and tobacco/nicotine status: never used tobacco/nicotine Quit status (tobacco/nicotine): has quit using Year quit tobacco: 20 years ago Alcohol intake: former Year of sobriety/quit date alcohol: 20 years ago Substance/Drug Use: never Lives independently: Yes Household members: spouse Housing: House Current occupational status: disabled Physical Exam 2 Const: COMMON NORMALS: no acute distress and patient oriented x3 GENERAL APPEARANCE: cooperative ORIENTATION/CONSCIOUSNESS: Yes awake, Yes oriented to person, Yes oriented to place and Yes oriented to time Eye: COMMON NORMALS: Equal, round and reactive pupils present and no scleral icterus PUPIL: Yes Equal, round and reactive pupils present GI: COMMON NORMALS: Soft to palpation; negative for No hepatosplenomegaly present INSPECTION: Yes normal to inspection PALPATION: Yes Soft to palpation, No Firmness to palpation present (GI), No Tenderness to palpation present (GI), No Guarding due to palpation present (GI), No Rigid due to palpation and No No hepatosplenomegaly present Back/Pelvis: OTHER: Patient has tenderness in the right SI joint region. He has a positive straight leg raise on the right at 45 degrees. He has weakness of the hip flexors, not able to hold the leg up over gravity. He also has diminished right patellar reflexes. His Achilles reflexes are 2+ bilaterally. No CVA tenderness. Decree sensation on the anterior and lateral right thigh extending to the right lateral lower leg area. Neuro: COMMON NORMALS: patient oriented x3 SENSORIUM/ORIENTATION: Yes oriented to person, Yes oriented to place and Yes oriented to time Course 2 Vital Signs: Vital signs: Vital Signs Temperature 97.5 F L 09/30/24 07:17 Pulse Rate 57 L 09/30/24 10:49 Respiratory Rate 18 09/30/24 08:32 Blood Pressure 138/77 09/30/24 10:49 Pulse Oximetry 99 09/30/24 10:49 Oxygen Delivery Me thod Room Air 09/30/24 10:00 MDM - Back Pain/Injury Medical Decision Making 52-year-old male presenting with acute onset of severe right-sided back pain with radicular symptoms suggesting possible nerve root compression. Problem List: 1. Acute right-sided back pain with radiculopathy, 2. Right leg weakness, 3. Chronic urological condition Differential Diagnosis: 1. Acute disc herniation, 2. Spinal nerve root compression, 3. Kidney stone, 4. Spinal stenosis, 5. Cauda equina syndrome (less likely given preserved bowel/bladder function) ED Course: Patient to receive IV pain medication, muscle relaxants, and IV fluids. CT imaging ordered to evaluate for both renal and spinal pathology. Patient's been given IV Zofran and IV morphine with significant improvement of his pain. Pain is tolerated. He has also been given IV Solu-Medrol. The patient is status post gastric bypass so cannot treat him with anti- inflammatories. Will treat him with prednisone 50 mg daily for 1 week. Have given him [place] 10 to take every 4-6 hours as needed for severe pain but have also given him Flexeril to take 3 times daily. Have instructed him if he has not improved in 3 to 4 days he should contact his primary care provider to get set up for an MRI as an outpatient return precautions have been discussed Labs Patient does have anemia with a hemoglobin of 9.5. Electrolytes are normal. Renal functions normal. Glucose is 148. The anemia is fairly stable, just minimally decreased from prior. 09/30/24 08:30 09/30/24 08:30 Radiology Impressions Abdomen/Pelvis CT 09/30/24 08:09 IMPRESSION: No acute intra-abdominal process. Lumbar Spine CT 09/30/24 08:09 IMPRESSION: Multilevel degenerative disease of the lower lumbar spine, most pronounced at L4-L5 with moderate bony canal stenosis, severe narrowing of the right and moderate narrowing of the left neural foramen. Laboratory Results WBC 4.61 10^3/uL (3.29-11.43) 09/30/24 08:30 RBC 4.53 10^6/uL (3.85-5.65) 09/30/24 08:30 Hgb 9.50 g/dL (11.27-16.99) L 09/30/24 08:30 Hct 32.2 % (37-53) L 09/30/24 08:30 MCV 71.1 fl (82-101) L 09/30/24 08:30 MCH 21.0 pg (27-33) L 09/30/24 08:30 MCHC 29.5 g/dL (30-55) L 09/30/24 08:30 RDW 16.8 % (12.1-15.1) H 09/30/24 08:30 Plt Count 222 10^3/cmm (157-399) 09/30/24 08:30 MPV 10.9 fL (7.4-10.4) H 09/30/24 08:30 Neut % (Auto) 46.9 % 09/30/24 08:30 Lymph % (Auto) 29.5 % 09/30/24 08:30 [place] % (Auto) 18.2 % 09/30/24 08:30 Eos % (Auto) 3.7 % 09/30/24 08:30 Baso % (Auto) 1.5 % 09/30/24 08:30 Neut # (Auto) 2.16 10^3/uL (1.8-7.7) 09/30/24 08:30 Lymph # (Auto) 1.4 10^3/uL (0.8-4.8) 09/30/24 08:30 [place] # (Auto) 0.8 10^3/uL (0.2-0.9) 09/30/24 08:30 Eos # (Auto) 0.2 10^3/uL (0.0-0.8) 09/30/24 08:30 Baso # (Auto) 0.1 10^3/uL (0.0-0.1) 09/30/24 08:30 Nucleated RBC % (auto) 0 % 09/30/24 08:30 Nucleated RBCs # 0.0 /100WBC 09/30/24 08:30 Sodium 137 mmol/L (136-145) 02/01/25 08:30 Potassium 3.9 mmol/L (3.5-5.1) 09/30/24 08:30 Chloride 102 mmol/L (98-107) 09/30/24 08:30 Carbon Dioxide 24 mmol/L (22-29) 09/30/24 08:30 Anion Gap 14.9 (5-19) 09/30/24 08:30 BUN 9 mg/dL (8-23) 09/30/24 08:30 Creatinine 0.6 mg/dL (0.7-1.2) L 09/30/24 08:30 GFR Calculation 136.5 mL/min (90-130) H 09/30/24 08:30 Glucose 148 mg/dL (65-115) H 09/30/24 08:30 Calculated Osmolality 285 mOsm/kg (285-295) 09/30/24 08:30 Calcium 8.5 mg/dL (8.5-10.5) 09/30/24 08:30 Magnesium 1.9 mg/dL (1.7-2.3) 09/30/24 08:30 Total Bilirubin 0.3 mg/dL (0.15-1.2) 09/30/24 08:30 AST 20 U/L (0-40) 09/30/24 08:30 ALT 12 U/L (0-41) 09/30/24 08:30 Alkaline Phosphatase 132 U/L (40-130) H 09/30/24 08:30 Total Protein 7.3 g/dL (6.6-8.7) 09/30/24 08:30 Albumin 4.0 g/dL (3.5-5.2) 09/30/24 08:30 Globulin 3.3 g/dL (1.3-4.6) 09/30/24 08:30 Urine Color Yellow (Yellow) 09/30/24: Urine Appearance Clear (CLEAR) 09/30/24: Urine pH 6.0 (5-7) 09/30/24: Ur Specific [place] 1.010 (1.005-1.030) 09/30/24 09:25 Urine Protein Negative (Negative) 09/30/24: Urine Glucose (UA) Negative (Normal) 09/30/24: Urine Ketones Negative (Negative) 09/30/24 09:25 Urine Blood Negative (Negative) 09/30/24 09:25 Urine Nitrate Negative (Negative) 09/30/24 09:25 Urine Bilirubin Negative (Negative) 09/30/24 09:25 Urine Urobilinogen 1.0 mg/dL (Negative) 09/30/24 09:25 Ur Leukocyte Esterase Negative (Negative) 09/30/24 09:25 Urine RBC 0-2 /hpf (0-2) 09/30/24 09:25 Urine WBC 0-5 /hpf (0-5) 09/30/24 09:25 Ur Squamous Epith Cells 0-5 /hpf (0-5) 09/30/24 09:25 Amorphous Sediment Not Reportable 09/30/24 09:25 Urine Bacteria None seen /hpf (NONE) 09/30/24 09:25 Hyaline Casts 0-4 /lpf H 09/30/24 09:25 All radiology interpretation(s) finalized by discharge ED provider radiology interpretation(s): CT scan of the abdomen and pelvis as well as CT scans of the lumbosacral spine have been obtained. The patient does have L4 4 5 degenerative changes. Suspect that this is contributing to her radicular issue causing his pain. Discharge Plan Discharge Patient Disposition: Home Clinical Impression: Lumbar radiculopathy Condition: Stable Prescriptions: New prednisone 50 mg tablet 50 mg PO DAILY 7 Days Qty: 7 0RF cyclobenzaprine 10 mg tablet 10 mg PO Q8H Qty: 30 0RF hydrocodone-acetaminophen 10-325 mg tablet 1 tab PO Q6H PRN (Reason: pain) Qty: 14 0RF No Action hydrocodone-acetaminophen 10-325 mg tablet 1 - 2 tab PO Q4H PRN (Reason: Pain) pregabalin [Lyrica] 150 mg capsule 1 mg PO BID metformin 850 mg tablet 1 mg PO DAILY clobetasol 0.05 % cream 1 applic TOPICAL BID tamsulosin 0.4 mg capsule 0.8 mg PO DAILY diclofenac sodium 1 % gel 2 g TOPICAL QID acetaminophen [Tylenol] 325 mg Tablet 650 mg PO QID PRN (Reason: Fever Or Pain) Discharge Orders: Discharge ED (Routine); Ordered 09/30/24 Ordered By: Kinga Smiley Referrals: Abdirahman Tidwell MD [Primary Care Provider] - (If you are not significantly improved in 3 to 4 days, he should follow-up with your primary care provider to get scheduled for an outpatient MRI) Discharge Diet: Advance as tolerated Discharge Activity: Increase activity as tolerated Patient Instructions: Lumbar Radiculopathy (ED), Opioid Safety, Pain Management Activity Restrictions/Additional Instructions: Take the medications as prescribed. Home to rest. Alternate ice and heat. Use your cane to help with ambulation. Return if you are having increased pain, worsening weakness, loss of bowel or bladder control. If you are not significantly improved in 3 to 4 days, you should follow-up with your primary care provider to get set up for an MRI Coding Level of Care Code ED Room Cleaner for Enrique Oliva
--- NOTE | 2024-09-30 08:09 | CTR_ITS ---
PROCEDURE INFORMATION: Exam: CT Lumbar Spine Without Contrast Exam date and time: 09/30/2024 8:39 AM Age: 64 years old Clinical indication: Low back pain; Additional info: Back pain with radiculopathy TECHNIQUE: Imaging protocol: Computed tomography of the lumbar spine without contrast. Radiation optimization: All CT scans at this facility use at least one of these dose optimization techniques: automated exposure control; mA and/or kV adjustment per patient size (includes targeted exams where dose is matched to clinical indication); or iterative reconstruction. COMPARISON: CT abdomen pelvis wo con [id number] 09/30/2024 8:39 AM RADIATION DOSE METRICS: Total DLP (mGy-cm): 997.3 FINDINGS: Bones/joints: There are mild degenerative changes of the sacroiliac joints. Minimal curvature of the lumbar spine convex to the left. No acute fracture or dislocation. No compression deformity. No spondylolisthesis. L3-L4: Mild posterior disc bulge with bilateral facet joint arthropathy and ligamentum flavum hypertrophy causing mild bony canal stenosis and mild narrowing of both neural foramina. L4-L5: Posterior disc bulge with bilateral facet joint arthropathy and ligamentum flavum hypertrophy causing moderate bony canal stenosis, severe narrowing of the right and moderate narrowing of the left neural foramen. L5-S1: Posterior disc bulge with bilateral facet joint arthropathy and ligamentum flavum hypertrophy causing mild bony canal stenosis. No significant neural foraminal stenosis. Soft tissues: Unremarkable. CT/CT lumbar spine wo con* [id number] IMPRESSION: Multilevel degenerative disease of the lower lumbar spine, most pronounced at L4-L5 with moderate bony canal stenosis, severe narrowing of the right and moderate narrowing of the left neural foramen.
--- NOTE | 2024-09-30 08:09 | CTR_ITS ---
PROCEDURE INFORMATION: Exam: CT Abdomen And Pelvis Without Contrast Exam date and time: 09/30/2024 8:39 AM Age: 64 years old Clinical indication: Abdominal pain; Flank; Right; Prior surgery; Surgery date: 6+ months; Surgery type: Gb, inguinal hernia; Additional info: Right flank pain TECHNIQUE: Imaging protocol: Computed tomography of the abdomen and pelvis without contrast. Radiation optimization: All CT scans at this facility use at least one of these dose optimization techniques: automated exposure control; mA and/or kV adjustment per patient size (includes targeted exams where dose is matched to clinical indication); or iterative reconstruction. COMPARISON: CT abdomen pelvis w con* [id number] 10/03/2019 10:28 PM RADIATION DOSE METRICS: Total DLP (mGy-cm): 994.7 FINDINGS: Liver: Normal. No mass. Gallbladder and biliary ducts: There has been a cholecystectomy. Pancreas: Normal. No ductal dilation. Spleen: There are multiple calcified granulomas of the spleen. Adrenal glands: Normal. No mass. Kidneys and ureters: Normal. No hydronephrosis. Stomach and bowel: There is diverticulosis of the sigmoid colon. There has been a gastric stapling and bypass. Appendix: No evidence of appendicitis. 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 Vasculature: There are numerous benign phleboliths in the pelvis. Calcified atheromas of the visualized arteries. Lymph nodes: Unremarkable. No enlarged lymph nodes. Urinary bladder: Unremarkable as visualized. Reproductive: The prostate gland demonstrates nonspecific parenchymal calcifications. Bones/joints: There are mild degenerative changes of the sacroiliac joints. There are mild degenerative changes of the hip joints. Mild curvature of the lumbar spine convex to the left. The lumbar spine demonstrates moderate degenerative changes at multiple levels. Soft tissues: Unremarkable. CT/CT abdomen pelvis wo con [id number] IMPRESSION: No acute intra-abdominal process.
[2024-09-30 08:32] VITALS: RESP 18; O2SAT 98
[2024-09-30] MEDS: LORazepam 2 mg/mL INJ 1 mL 0.5 MG IVP (08:32)
[2024-09-30] MEDS: morphine 4 mg/mL SDV 1 mL IVP ×2 (08:32→10:22)
[2024-09-30] MEDS: sodium chloride 0.9% 1,000 ML 999 ML IV (08:33)
[2024-09-30] MEDS: ondansetron 2 mg/ML SDV 2 mL 4 MG IVP (08:33)
[2024-09-30 08:42] LABS: Basophils # 0.1 10^3/uL (0.0-0.1); Basophils % 1.5 %; Eosinophils # 0.2 10^3/uL (0.0-0.8); Eosinophils % 3.7 %; Hematocrit 32.2 % (37-53); Lymphocytes # 1.4 10^3/uL (0.8-4.8); Lymphocytes % 29.5 %; Mean Corpuscular HGB Conc 29.5 g/dL (30-55); Mean Corpuscular Volume 71.1 fl (82-101); Mean Platelet Volume 10.9 fL (7.4-10.4); Monocytes # 0.8 10^3/uL (0.2-0.9); Monocytes % 18.2 %; Neutrophils # 2.16 10^3/uL (1.8-7.7); Neutrophils % 46.9 %; Nucleated Red Blood Cells % 0 %; Platelet Count 222 10^3/cmm (157-399); Red Blood Count 4.53 10^6/uL (3.85-5.65); Red Cell Distribution Width 16.8 % (12.1-15.1); White Blood Count 4.61 10^3/uL (3.29-11.43)
[2024-09-30 08:56] VITALS: BP 148/89; PULSE 60; O2SAT 99
[2024-09-30 09:01] LABS: Alanine Aminotransferase 12 U/L (0-41); Alkaline Phosphatase 132 U/L (40-130); Anion Gap 14.9 (5-19); Aspartate Amino Transferase 20 U/L (0-40); Blood Urea Nitrogen 9 mg/dL (8-23); Calcium 8.5 mg/dL (8.5-10.5); Carbon Dioxide 24 mmol/L (22-29); Chloride 102 mmol/L (98-107); Creatinine Clr Calc Pharmacy 157.5766; Globulin 3.3 g/dL (1.3-4.6); Glomerular Filtration Rate 136.5 mL/min (90-130); Glucose 148 mg/dL (65-115); Magnesium 1.9 mg/dL (1.7-2.3); Osmolality Calculated 285 mOsm/kg (285-295); Potassium 3.9 mmol/L (3.5-5.1); Sodium 137 mmol/L (136-145); Total Bilirubin 0.3 mg/dL (0.15-1.2); Total Protein 7.3 g/dL (6.6-8.7)
[2024-09-30 09:31] LABS: Bilirubin Urine Negative (Negative); Blood Urine Negative (Negative); Glucose Urine UA Negative (Normal); Ketones Urine Negative (Negative); Leukocyte Esterase Urine Negative (Negative); Nitrate Urine Negative (Negative); Protein Urine Negative (Negative); Urine Appearance Clear (CLEAR); Urine Color Yellow (Yellow)
[2024-09-30 09:36] LABS: Add Urine Microscopic? YES; Bacteria Urine None Seen /hpf; Hyaline Casts Urine 0-4 /lpf; RBC Urine 0-2 /hpf (0-2); Squamous Epithelial Cell Urine 0-5 /hpf (0-5); WBC Urine 0-5 /hpf (0-5)
[2024-09-30 10:00] VITALS: BP 135/79; PULSE 75; O2SAT 98
[2024-09-30] MEDS: methylPREDNISolone sod succ 125 mg/2 mL INJ IVP (10:22)
[2024-09-30 10:49] VITALS: BP 138/77; PULSE 57; O2SAT 99
== END 2024-09-30 10:50 | disposition home or self-care (01) ==
PROVIDERS: Emergency Provider Emergency Medicine; PCP Family Medicine Geriatric Medicine
DX: M54.16 Radiculopathy, lumbar region (principal); Z79.84 Long term (current) use of oral hypoglycemic drugs; Z87.891 Personal history of nicotine dependence; E11.9 Type 2 diabetes mellitus without complications; I10 Essential (primary) hypertension; E78.5 Hyperlipidemia, unspecified
CPT/HCPCS: 72131; 74176; 80053; 81001; 83735; 85025; 96374; 96375; 96376; 99285; J2060; J2270; J2405; J2919; J7030